=== PATIENT | male | born 1930 | race American Indian/Alaskan Native ===

== ENCOUNTER 2019-01-30 14:17 | Emergency (ER) | payer MEDICARE ==
--- NOTE | 2019-01-30 15:34 | XRay Report ---
CHEST 1 VIEW INDICATION: cough rhonchi. COMPARISON: 06/29/2016 FINDINGS: Support devices: None. Heart: Within normal limits. The aorta is mildly ectatic. Lungs/Pleura: No acute air space or interstitial disease. Additional findings: None. IMPRESSION: No acute findings. Signer Name: Wisam Manzo Jr, MD Signed: 01/30/2019 3:30 PM Workstation Name: [id number]
[2019-01-30 16:09] LABS: Albumin 3.2 g/dL (3.9-5); Calcium 8.9 mg/dL (8.4-10.2)
[2019-01-30 16:19] LABS: Hematocrit 43.8 % (35.5-45.6); Hemoglobin 14.1 gm/dl (11.8-15.2); Mean Corpuscular HGB Conc 32 % (32-34); Mean Corpuscular Volume 91 fl (84-94); Platelet Count 123 K/mm3 (140-440); Red Blood Count 4.83 M/mm3 (3.65-5.03); Red Cell Distribution Width 17.3 % (13.2-15.2)
[2019-01-30 16:28] LABS: INR 0.94 (0.87-1.13)
--- NOTE | 2019-01-30 16:45 | Emergency Department Report ---
ED General Adult HPI - General Chief complaint: Psych Stated complaint: SUICIDLE THOUGHTS Time Seen by Provider: 01/30/19 14:28 Source: patient, EMS (my EMS disclaimed), RN notes reviewed, old records reviewed Mode of arrival: Stretcher Limitations: No Limitations - History of Present Illness Initial comments: The patient is a pleasant 88-year-old gentleman. This patient is not known to this provider previously. The patient typically follows at the [facility]. His past medical history includes obesity, diabetes, hypertension, renal insufficiency, history of GI bleed, diverticulosis He is sent to the ER with EMS because he reportedly made comments about wanting to be suicidal. The patient states that he was not serious about being suicidal. He states he does not have access to guns or firearms. He states he does not want to hurt himself or hurt other people. He states he does not have hallucinations. The patient indicates that he understands how making comments about suicidality could distress people. He denies urinary symptoms. He admits to cough and nasal and chest congestion for 20 years. He denies physical pain at this time. -: This afternoon Consistency: now resolved Improves with: none Worsens with: none - Related Data Previous Rx's Medication Instructions Recorded Last Taken Type Bisacodyl [Dulcolax tab] 10 mg PO QDAY PRN #30 tablet 04/22/13 Unknown Rx Insulin Glargine,Hum.rec.anlog 20 unit SQ QHS #1 pen 04/22/13 Unknown Rx [Lantus Solostar] Lisinopril [Zestril TAB] 20 mg PO QDAY #30 tablet 04/22/13 Unknown Rx Metoprolol [Lopressor TAB] 25 mg PO BID #60 tablet 04/22/13 Unknown Rx Pantoprazole [Protonix TAB] 40 mg PO QDAY #30 tablet 06/30/16 Unknown Rx Albuterol Sulfate [Proair 90 mcg IH Q4HR PRN #2 aer.pow.ba 01/30/19 Unknown Rx Respiclick] Nitrofurantoin [place]/M-Cryst 100 mg PO Q12HR #13 capsule 01/30/19 Unknown Rx [Macrobid CAP] Allergies Allergy/AdvReac Type Severity Reaction Status Date / Time No Known Allergies Allergy Unverified 04/17/13 18:54 ED Review of Systems ROS: Stated complaint: SUICIDLE THOUGHTS Other details as noted in HPI Constitutional: denies: fever Eyes: denies: eye discharge ENT: congestion Respiratory: cough Cardiovascular: denies: syncope Gastrointestinal: denies: abdominal pain Genitourinary: denies: dysuria Musculoskeletal: arthralgia (chronic) Neurological: denies: weakness Psychiatric: denies: auditory hallucinations, visual hallucinations, homicidal thoughts, suicidal thoughts ED Past Medical Hx - Past Medical History Hx Hypertension: Yes Hx CVA: Yes Hx Diabetes: Yes Hx Renal Disease: Yes (renal insufficiency) Hx of Cancer: Yes (throat) Additional medical history: gout - Surgical History Past Surgical History?: No - Social History Smoking Status: Former Smoker Substance Use Type: None - Medications Home Medications: Home Medications Medication Instructions Recorded Confirmed Last Taken Type Bisacodyl [Dulcolax tab] 10 mg PO QDAY PRN #30 tablet 04/22/13 06/27/16 Unknown Rx Insulin Glargine,Hum.rec.anlog 20 unit SQ QHS #1 pen 04/22/13 06/27/16 Unknown Rx [Lantus Solostar] Lisinopril [Zestril TAB] 20 mg PO QDAY #30 tablet 04/22/13 06/27/16 Unknown Rx Metoprolol [Lopressor TAB] 25 mg PO BID #60 tablet 04/22/13 06/27/16 Unknown Rx Pantoprazole [Protonix TAB] 40 mg PO QDAY #30 tablet 06/30/16 Unknown Rx Albuterol Sulfate [Proair 90 mcg IH Q4HR PRN #2 aer.pow.ba 01/30/19 Unknown Rx Respiclick] Nitrofurantoin [place]/M-Cryst 100 mg PO Q12HR #13 capsule 01/30/19 Unknown Rx [Macrobid CAP] ED Physical Exam - General Limitations: No Limitations General appearance: alert, in no apparent distress, obese - Head Head exam: Present: atraumatic, normocephalic - Eye Eye exam: Present: normal appearance, EOMI, other (visual acuity intact to finger counting and color perception at the closest). Absent: nystagmus - ENT ENT exam: Present: normal exam, normal orophraynx, mucous membranes moist, normal external ear exam - Neck Neck exam: Present: normal inspection, full ROM. Absent: tenderness, meningismu s - Respiratory Respiratory exam: Present: rhonchi (very faint rhonchi noted). Absent: respiratory distress - Cardiovascular Cardiovascular Exam: Present: regular rate, normal rhythm, normal heart sounds. Absent: bradycardia, tachycardia, irregular rhythm, systolic murmur, diastolic murmur, rubs, gallop - GI/Abdominal GI/Abdominal exam: Present: soft. Absent: distended, tenderness, guarding, rebound, rigid, pulsatile mass - Rectal Rectal exam: Present: deferred - Extremities Exam Extremities exam: Present: normal inspection, full ROM, other (2+ pulses noted in the bilateral upper and lower extremities. There is no palpable cord. negative Homans sign. Muscular compartments are soft. The pelvis is stable.). Absent: calf tenderness - Back Exam Back exam: Present: normal inspection, full ROM. Absent: tenderness, CVA tenderness (R), CVA tenderness (L), paraspinal tenderness, vertebral tenderness - Neurological Exam Neurological exam: Present: alert (sensation is intact to light touch in 4 extremities.), oriented X3, normal gait, other (there is no facial droop. The tongue is midline. The extraocular movements are intact bilaterally. There is 5 out of 5 strength bilateral upper and lower extremities.). Absent: motor sensory deficit - Psychiatric Psychiatric exam: Absent: homicidal ideation, suicidal ideation - Skin Skin exam: Present: warm, dry, intact, normal color. Absent: rash ED Course Vital Signs 01/30/19 01/30/19 01/30/19 16:08 16:13 17:10 Temperature 98.3 F Pulse Rate 73 65 Respiratory 16 15 13 Rate Blood Pressure 153/70 Blood Pressure 145/76 [Left] O2 Sat by Pulse 94 95 Oximetry - Reevaluation(s) Reevaluation #1: 01/30/19 16:45 Differential diagnosis, including but not limited to: Mood disorder, bronchitis, general medical evaluation Assessment and plan: 88-year-old gentleman who is pleasant, calm and cooperative, not hallucinating, clinically sober, not violent and combative, who does not have suicidality at this time. His physical exam is fairly unremarkable. Screening laboratory studies unremarkable. EKG unchanged from prior. X-ray of the chest reviewed and appreciated. Urinalysis pending. Patient does not appear to have an acute medical emergency condition at this time. Psychiatric consultation is requested, I do not anticipate need for 1013 or inpatient psychiatric old at this time. Reevaluation #2: 01/30/19 18:30 Patient resting comfortably, and in no acute distress. Urinalysis reviewed and appreciated. Vital signs unremarkable. At this point in time, the patient does not appear to have an immediate medical contraindication to psychiatric admission, evaluation and consultation. Patient will be discharged to our [facility] psychiatric floor for further evaluation and management. Reevaluation #3: 01/30/19 18:32 rhonchi resolved ED Medical Decision Making - Lab Data Result diagrams: 01/30/19 15:34 01/30/19 15:34 Vital Signs 01/30/19 01/30/19 16:08 16:13 Pulse Rate 73 Respiratory 16 15 Rate Blood Pressure 153/70 O2 Sat by Pulse 94 Oximetry Lab Results 01/30/19 01/30/19 01/30/19 Range/Units 15:34 15:34 15:34 WBC 5.7 (4.5-11.0) K/mm3 RBC 4.83 (3.65-5.03) M/mm3 Hgb 14.1 (11.8-15.2) gm/dl Hct 43.8 (35.5-45.6) % MCV 91 (84-94) fl MCH 29 (28-32) pg MCHC 32 (32-34) % RDW 17.3 H (13.2-15.2) % Plt Count 123 L (140-440) K/mm3 PT 12.5 (12.2-14.9) Sec. INR 0.94 (0.87-1.13) Sodium 141 (137-145) mmol/L Potassium 4.4 (3.6-5.0) mmol/L Chloride 108.1 H (98-107) mmol/L Carbon Dioxide 25 (22-30) mmol/L Anion Gap 12 mmol/L BUN 17 (9-20) mg/dL Creatinine 1.4 (0.8-1.5) mg/dL Estimated GFR 58 ml/min BUN/Creatinine Ratio 12 % Glucose 129 H (75-100) mg/dL Calcium 8.9 (8.4-10.2) mg/dL Magnesium 2.10 (1.7-2.3) mg/dL Total Bilirubin 0.50 (0.1-1.2) mg/dL AST 16 (5-40) units/L ALT 12 (7-56) units/L Alkaline Phosphatase 134 H (35-129) units/L Total Creatine Kinase 69 (55-170) units/L Total Protein 6.7 (6.3-8.2) g/dL Albumin 3.2 L (3.9-5) g/dL Albumin/Globulin Ratio 0.9 % TSH (0.270-4.200) mlU/mL Salicylates (2.8-20.0) mg/dL Acetaminophen (10.0-30.0) ug/mL Plasma/Serum Alcohol (0-0.07) % 01/30/19 01/30/19 01/30/19 Range/Units 15:34 15:34 15:34 WBC (4.5-11.0) K/mm3 RBC (3.65-5.03) M/mm3 Hgb (11.8-15.2) gm/dl Hct (35.5-45.6) % MCV (84-94) fl MCH (28-32) pg MCHC (32-34) % RDW (13.2-15.2) % Plt Count (140-440) K/mm3 PT (12.2-14.9) Sec. INR (0.87-1.13) Sodium (137-145) mmol/L Potassium (3.6-5.0) mmol/L Chloride (98-107) mmol/L Carbon Dioxide (22-30) mmol/L Anion Gap mmol/L BUN (9-20) mg/dL Creatinine (0.8-1.5) mg/dL Estimated GFR ml/min BUN/Creatinine Ratio % Glucose (75-100) mg/dL Calcium (8.4-10.2) mg/dL Magnesium (1.7-2.3) mg/dL Total Bilirubin (0.1-1.2) mg/dL AST (5-40) units/L ALT (7-56) units/L Alkaline Phosphatase (35-129) units/L Total Creatine Kinase (55-170) units/L Total Protein (6.3-8.2) g/dL Albumin (3.9-5) g/dL Albumin/Globulin Ratio % TSH 2.730 (0.270-4.200) mlU/mL Salicylates < 0.3 L (2.8-20.0) mg/dL Acetaminophen < 5.0 L (10.0-30.0) ug/mL Plasma/Serum Alcohol (0-0.07) % 01/30/19 Range/Units 15:34 WBC (4.5-11.0) K/mm3 RBC (3.65-5.03) M/mm3 Hgb (11.8-15.2) gm/dl Hct (35.5-45.6) % MCV (84-94) fl MCH (28-32) pg MCHC (32-34) % RDW (13.2-15.2) % Plt Count (140-440) K/mm3 PT (12.2-14.9) Sec. INR (0.87-1.13) Sodium (137-145) mmol/L Potassium (3.6-5.0) mmol/L Chloride (98-107) mmol/L Carbon Dioxide (22-30) mmol/L Anion Gap mmol/L BUN (9-20) mg/dL Creatinine (0.8-1.5) mg/dL Estimated GFR ml/min BUN/Creatinine Ratio % Glucose (75-100) mg/dL Calcium (8.4-10.2) mg/dL Magnesium (1.7-2.3) mg/dL Total Bilirubin (0.1-1.2) mg/dL AST (5-40) units/L ALT (7-56) units/L Alkaline Phosphatase (35-129) units/L Total Creatine Kinase (55-170) units/L Total Protein (6.3-8.2) g/dL Albumin (3.9-5) g/dL Albumin/Globulin Ratio % TSH (0.270-4.200) mlU/mL Salicylates (2.8-20.0) mg/dL Acetaminophen (10.0-30.0) ug/mL Plasma/Serum Alcohol < 0.01 (0-0.07) % - EKG Data -: EKG Interpreted by Ct EKG shows normal: sinus rhythm Rate: normal - EKG Data 01/30/19 16:44 The EKG today shows a sinus rhythm, 74 bpm, there is a left axis deviation, there is a prolonged QTC, there is a right bundle branch block, there is a left axis deviation, there is a left anterior fascicular block, there is motion artifact, the EKG is abnormal, it is unchanged from prior EKG from May 2016. The EKG is not consistent with ST elevation myocardial infarction. - Radiology Data Radiology results: report reviewed, image reviewed Print Report Referring Physician: NICOLE TURNER Patient Name: KAREL SCANLON Date of : 1930 Sex: Male Report Date: 2019-01-30 Report Status: Finalized Findings [facility] [address] [place] [address] XRay Report Signed Patient: KAREL SCANLON MR#: [id number] : 1930 Acct:[id number] Age/Sex: 88 / M ADM Date: 01/30/19 Loc: ED Attending Dr: Ordering Physician: NICOLE TURNER MD Date of Service: 01/30/19 Procedure(s): XR chest 1V ap Accession Number(s): [id number] cc: NICOLE TURNER MD Fluoro Time In Minutes: CHEST 1 VIEW INDICATION: cough rhonchi. COMPARISON: 06/29/2016 FINDINGS: Support devices: None. Heart: Within normal limits. The aorta is mildly ectatic. Lungs/Pleura: No acute air space or interstitial disease. Additional findings: None. IMPRESSION: No acute findings. Signer Name: Wisam Manzo Jr, MD Signed: 01/30/2019 3:30 PM Workstation Name: [id number] Transcribed By: TTR Dictated By: WISAM MANZO JR, MD Electronically Authenticated By: WISAM MANZO JR, MD Signed Date/Time: 01/30/19 1530 DD/ 1529 TD/TT: Critical care attestation.: If time is entered above; I have spent that time in minutes in the direct care of this critically ill patient, excluding procedure time. ED Disposition Clinical Impression: Medical clearance for psychiatric admission Disposition: [id number]/TX-65 PSY HOSP/PSY UNIT Is pt being admited?: No Does the pt Need Aspirin: No Condition: Stable Additional Instructions: Cultures of the urine was sent today, and results be available in the next 3-5 days. Please have a primary care doctor contact the medical records department to obtain culture results. Take the antibiotics as directed. Follow-up with her primary care doctor within the next 7 days. Return to the emergency room right away with new, worsen, different symptoms, or symptoms not present on the initial emergency room evaluation. Referrals: MANOLO WALDEN MD [Primary Care Provider] - 3-5 Days [facility] [Provider Group] - 3-5 Days
[2019-01-30 18:08] LABS: Amphetamine Screen,Urine PRESUMPTIVE NEGATIVE; Benzodiazepines Screen,Urine PRESUMPTIVE NEGATIVE; Cannabinoid Screen,Urine PRESUMPTIVE NEGATIVE; Cocaine Screen,Urine PRESUMPTIVE NEGATIVE; Methadone Screen,Urine PRESUMPTIVE NEGATIVE; Opiate Screen,Urine PRESUMPTIVE NEGATIVE
[2019-01-30 18:09] LABS: Bacteria,Urine 4+ /HPF (Negative); Bilirubin,Urine NEG (Negative); Blood,Urine NEG (Negative); Color,Urine Yellow (Yellow); Mucus,Urine FEW /HPF; Protein,Urine <15 mg/dL mg/dL (Negative)
[2019-01-30] MEDS ORDERED: NITROFURANTOIN MONOHYD/M-CRYST 100 MG CAP PO ONE (18:27)
[2019-01-30 19:08] VITALS: BP 153/81
== END 2019-01-30 19:08 ==
LOC: ED 14:17 → EEVIPCON 14:17 → ED 19:08
DX: R45.851 Suicidal ideations (principal); R05 Cough; R09.81 Nasal congestion; I10 Essential (primary) hypertension; E11.9 Type 2 diabetes mellitus without complications; M10.9 Gout, unspecified; Z87.891 Personal history of nicotine dependence; Z79.899 Other long term (current) drug therapy
CPT/HCPCS: 36415; 71045; 80053; 80307; 80320; 81001; 82550; 83735; 84443; 85027; 85610; 87076; 87086; 87186; 93005; 93010; G0480

== ENCOUNTER 2019-01-30 18:04 | Inpatient (IN) | payer MEDICARE ==
[2019-01-31 07:45] LABS: Chol/HDL Ratio 3.31 %
--- NOTE | 2019-01-31 10:18 | Progress Note ---
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 Subjective Comment: Patient seen this morning. Per Nursing Staff, patient had an uneventful night, patient slept 8+ hours. Assisted up to use the urinal. Denies discomfort. Monitoring and safety is ongoing. In my interview this morning with the patient, Mr. Robles stated he was in an alright mood, did not sleep well, and was cold. The patient does not want to harm himself or others, presently has no thought of suicide, and has no side effects from his medications. The patient asked for a sleeping pill to help him sleep. Objective - Criteria for Continued Treatment Criteria for Continued Treatment: Improving Level of Functioning, Stablizing Level of Functioning, Decreasing Frequency of Hospitalization - Mental Status Mental Status: Alert - Objective Observation Participation Level: Moderate Assessment and Plan - Patient Problems (1) Major neurocognitive disorder due to Alzheimer's disease, probable, with behavioral disturbance Current Visit: Yes Status: Acute Plan to address problem: Patient will be admitted for inpatient psychiatric evaluation, medication adjustment and close monitoring The patient's behavior, mood, sleep and appetite will be closely monitored. Patient will be enrolled in individual and group therapeutic sessions and encouraged to attend. Patient will be provided with a safe and structured environment. Patient's physical health needs will be addressed by the Hospitalist. Hospitalist Consulted Labs including CBC, CMP, Lipid profile and Hemoglobin A1C ordered Social Assessment will be completed and the Metal Reed Tuner will work with patient and family to ensure a suitable and safe disposition Medication adjustment will be made as clinically indicated Usual Wellness Quaker/Preservation: - Start Trazodone 50 mg po QHS & 50 mg po QHS PRN between 10 PM & 2 AM for insomnia - Start Melatonin 5 mg po QHS to promote circadian rhythm - Start [place]-3 for brain health, reduce impulsivity, and as adjunctive treatment for mood disorder, continue upon discharge given overall benefits. - Start B1 prophylaxis with 200 mg po for 5 days The patient agreed on the treatment plan, understood the risk, benefit, alternative treatment, potential consequence of no treatment, and gave informed consent. Medications and Allergies Allergies Allergy/AdvReac Type Severity Reaction Status Date / Time No Known Allergies Allergy Unverified 04/17/13 18:54 Home Medications Medication Instructions Recorded Confirmed Last Taken Type Bisacodyl [Dulcolax tab] 10 mg PO QDAY PRN #30 tablet 04/22/13 01/31/19 Unknown Rx Insulin Glargine,Hum.rec.anlog 20 unit SQ QHS #1 pen 04/22/13 01/31/19 Unknown Rx [Lantus Solostar] Lisinopril [Zestril TAB] 20 mg PO QDAY #30 tablet 04/22/13 01/31/19 Unknown Rx Metoprolol [Lopressor TAB] 25 mg PO BID #60 tablet 04/22/13 01/31/19 Unknown Rx Pantoprazole [Protonix TAB] 40 mg PO QDAY #30 tablet 06/30/16 01/31/19 Unknown Rx Albuterol Sulfate [Proair 90 mcg IH Q4HR PRN #2 aer.pow.ba 01/30/19 01/31/19 Unknown Rx Respiclick] Nitrofurantoin [place]/M-Cryst 100 mg PO Q12HR #13 capsule 01/30/19 01/31/19 Unknown Rx [Macrobid CAP] Results - Results Labs/Vitals: Laboratory Last Values POC Glucose 93 (70-105) 01/31/19 06:33 Hemoglobin A1c 5.8 % (4-6) 01/31/19 07:20 Triglycerides 98 mg/dL (2-149) 01/31/19 07:20 Cholesterol 156 mg/dL (50-199) 01/31/19 07:20 LDL Cholesterol Direct 106 mg/dL (50-130) 01/31/19 07:20 HDL Cholesterol 47 mg/dL (40-59) 01/31/19 07:20 Cholesterol/HDL Ratio 3.31 % 01/31/19 07:20 Last Vital Signs Temp 97.3 F L 01/30/19 22:00 Pulse 76 01/30/19 22:00 Resp 16 01/30/19 22:00 BP 131/64 01/30/19 22:00 Pulse Ox 97 01/30/19 22:00 Mental Status Exam - Vital signs Last Vital Signs Temp 97.7 F 02/01/19 09:46 Pulse 68 02/01/19 22:00 Resp 18 02/01/19 22:00 BP 124/66 02/01/19 22:00 Pulse Ox 95 02/01/19 22:00 - Exam Orientation: place, person Affect: normal Mood: calm Thought content: other (No SI/HI) Thought Process: Intact Perceptions: none Speech: normal rate and pattern Level of consciousness: alert Memory: Intact Sleep Symptoms: Difficulty Falling Asleep Interaction: cooperative
--- NOTE | 2019-01-31 13:27 | History and Physical Report ---
GP History & Physical - History of Present Illness Date of admission: 01/30/19 Date of Examination: 01/31/19 Reason for Admission: Danger to self, Severe anxiety/depression, Unable to care for self Chief Complaint: I said something stupid History of Present Illness: Karel Scanlon is an 88 year old retired male. Mr. Scanlon is a of 14 years. The patient stated that he just was tired of where he was, and what was going on, so he said he was going to kill himself to be moved from that place. MMSE PAST PSYCHIATRIC HISTORY: Diagnoses: None Suicide attempts or Self-harm behavior: Patient said this was his first time. Prior psychiatric hospitalizations: None Substance Abuse history: Alcohol: Patient stated that he hadn't had a drink in 12 years. Tobacco: Patient does not smoke. Previous psychiatric medications tried: n/a Outpatient treatment: none PAST MEDICAL /SURGICAL HISTORY: HTN, Diabetes, gout, UTI, Throat cancer, stroke and back surgery. Patient ambulates on wheelchair Allergies: NKDA Family Psychiatric History None reported or documented SOCIAL HISTORY Retired Lives with family Access to guns/weapons: No Education: Highest Grade Level 4th History of Abuse: None REVIEW OF SYSTEMS Constitutional: Negative for weight loss ENT: Negative for stridor Respiratory: Negative for cough or hemoptysis All other systems reviewed and are negative Legal Status: Voluntary Patient Problems: Current Active Problems Major neurocognitive disorder due to Alzheimer's disease, probable, with behavioral disturbance (Acute) Reaction to Hospitalization: Accepting Medications and Allergies Allergies Allergy/AdvReac Type Severity Reaction Status Date / Time No Known Allergies Allergy Unverified 04/17/13 18:54 Home Medications Medication Instructions Recorded Confirmed Last Taken Type Bisacodyl [Dulcolax tab] 10 mg PO QDAY PRN #30 tablet 04/22/13 01/31/19 Unknown Rx Insulin Glargine,Hum.rec.anlog 20 unit SQ QHS #1 pen 04/22/13 01/31/19 Unknown Rx [Lantus Solostar] Lisinopril [Zestril TAB] 20 mg PO QDAY #30 tablet 04/22/13 01/31/19 Unknown Rx Metoprolol [Lopressor TAB] 25 mg PO BID #60 tablet 04/22/13 01/31/19 Unknown Rx Pantoprazole [Protonix TAB] 40 mg PO QDAY #30 tablet 06/30/16 01/31/19 Unknown Rx Albuterol Sulfate [Proair 90 mcg IH Q4HR PRN #2 aer.pow.ba 01/30/19 01/31/19 Unknown Rx Respiclick] Nitrofurantoin [place]/M-Cryst 100 mg PO Q12HR #13 capsule 01/30/19 01/31/19 Unknown Rx [Macrobid CAP] Substance History - Substance History Drug Use: none Results - Results Labs/Vitals: Laboratory Last Values POC Glucose 104 (70-105) 01/31/19 11:52 Hemoglobin A1c 5.8 % (4-6) 01/31/19 07:20 Triglycerides 98 mg/dL (2-149) 01/31/19 07:20 Cholesterol 156 mg/dL (50-199) 01/31/19 07:20 LDL Cholesterol Direct 106 mg/dL (50-130) 01/31/19 07:20 HDL Cholesterol 47 mg/dL (40-59) 01/31/19 07:20 Cholesterol/HDL Ratio 3.31 % 01/31/19 07:20 Last Vital Signs Temp 97.3 F L 01/30/19 22:00 Pulse 76 01/30/19 22:00 Resp 16 01/30/19 22:00 BP 131/64 01/30/19 22:00 Pulse Ox 97 01/30/19 22:00 Physical Examination - Constitutional Vitals: Vital Signs Temp Pulse Resp BP Pulse Ox 97.3 F L 76 16 131/64 97 01/30/19 22:00 01/30/19 22:00 01/30/19 22:00 01/30/19 22:00 01/30/19 22:00 Temperature -Last 24 Hours Temperature 97.3 F General appearance: Present: no acute distress, well-nourished - EENT Eyes: Present: PERRL, EOM intact ENT: hearing intact, clear oral mucosa - Neck Neck: Present: supple, normal ROM - Respiratory Respiratory effort: normal Mental Status Exam - Vital signs Last Vital Signs Temp 97.3 F L 01/30/19 22:00 Pulse 76 01/30/19 22:00 Resp 16 01/30/19 22:00 BP 131/64 01/30/19 22:00 Pulse Ox 97 01/30/19 22:00 - Exam Orientation: time, place, person Affect: normal Mood: appropriate Thought Process: Intact Perceptions: none Speech: normal rate and pattern Concentration: focused Motor activity: normal Level of consciousness: alert Assessment and Plan - Psychiatric problem (1) Major neurocognitive disorder due to Alzheimer's disease, probable, with behavioral disturbance Current Visit: Yes Status: Acute plan to address problem: Patient will be admitted for inpatient psychiatric evaluation, medication adjustment and close monitoring The patient's behavior, mood, sleep and appetite will be closely monitored. Patient will be enrolled in individual and group therapeutic sessions and encouraged to attend. Patient will be provided with a safe and structured environment. Patient's physical health needs will be addressed by the Hospitalist. Hospitalist Consulted Labs including CBC, CMP, Lipid profile and Hemoglobin A1C ordered Social Assessment will be completed and the Automat Watcher will work with patient and family to ensure a suitable and safe disposition Medication adjustment will be made as clinically indicated Usual Wellness Jain/Preservation: - Start Trazodone 50 mg po QHS & 50 mg po QHS PRN between 10 PM & 2 AM for insomnia - Start Melatonin 5 mg po QHS to promote circadian rhythm - Start [place]-3 for brain health, reduce impulsivity, and as adjunctive treatment for mood disorder, continue upon discharge given overall benefits. - Start B1 prophylaxis with 200 mg po for 5 days The patient agreed on the treatment plan, understood the risk, benefit, alternative treatment, potential consequence of no treatment, and gave informed consent. Physician Certification - Certification Statement Physician Certification Statement: This is an acknowledgement statement that KAREL SCANLON is a 88 year old M who requires inpatient psychiatric admission for treatment which could reasonably be expected to improve the patient's condition for Estimated period of time patient will need to remain in the hospital: [ ] Plan for post-hospital care: [ ]
--- NOTE | 2019-01-31 17:47 | Consultation ---
History of Present Illness - Reason for Consult Consult date: 01/31/19 med mgmnt - History of Present Illness Davon Robles is an 88 year old retired male. Mr. Robles is a of 14 years. The patient stated that he just was tired of where he was, and what was going on, so he said he was going to kill himself to be moved from that place per Psych attending. Hospitalist service was consulted for medical management of DM and HTN. No CP, SOB, h/a or visual disturbances. Pt. reports left knee pain attributed to gout. Past History Past Medical History: diabetes, hypertension, other (gout) Medications and Allergies Allergies Allergy/AdvReac Type Severity Reaction Status Date / Time No Known Allergies Allergy Unverified 04/17/13 18:54 Home Medications Medication Instructions Recorded Confirmed Last Taken Type Bisacodyl [Dulcolax tab] 10 mg PO QDAY PRN #30 tablet 04/22/13 01/31/19 Unknown Rx Insulin Glargine,Hum.rec.anlog 20 unit SQ QHS #1 pen 04/22/13 01/31/19 Unknown Rx [Lantus Solostar] Lisinopril [Zestril TAB] 20 mg PO QDAY #30 tablet 04/22/13 01/31/19 Unknown Rx Metoprolol [Lopressor TAB] 25 mg PO BID #60 tablet 04/22/13 01/31/19 Unknown Rx Pantoprazole [Protonix TAB] 40 mg PO QDAY #30 tablet 06/30/16 01/31/19 Unknown Rx Albuterol Sulfate [Proair 90 mcg IH Q4HR PRN #2 aer.pow.ba 01/30/19 01/31/19 Unknown Rx Respiclick] Nitrofurantoin [place]/M-Cryst 100 mg PO Q12HR #13 capsule 01/30/19 01/31/19 Unknown Rx [Macrobid CAP] Review of Systems All systems: negative Exam - Constitutional Vitals: Temp Pulse Resp BP Pulse Ox 97.3 F L 76 16 131/64 97 01/30/19 22:00 01/30/19 22:00 01/30/19 22:00 01/30/19 22:00 01/30/19 22:00 General appearance: Present: no acute distress, well-nourished - EENT Eyes: Present: PERRL ENT: hearing intact, clear oral mucosa - Neck Neck: Present: supple, normal ROM - Respiratory Respiratory effort: normal Respiratory: bilateral: CTA - Cardiovascular Heart Sounds: Present: S1 & S2. Absent: rub, click - Extremities Extremities: pulses symmetrical, No edema Peripheral Pulses: within normal limits - Abdominal General gastrointestinal: Present: soft, non-tender, non-distended, normal bowel sounds Male genitourinary: Present: normal - Integumentary Integumentary: Present: clear, warm, dry - Musculoskeletal Musculoskeletal: gait normal, strength equal bilaterally - Psychiatric Psychiatric: appropriate mood/affect, intact judgment & insight - Neurologic Neurologic: CNII-XII intact, moves all extremities Results - Labs Labs: Abnormal lab results 01/30/19 01/31/19 Range/Units 20:32 16:40 POC Glucose 143 H 159 H (70-105) Assessment and Plan Depression ? SI per Psych team DM. Accuchecks and SSRI HTN. Cont BP meds Gout. Consider colchicine. Check Uric acid levels
[2019-01-31] MEDS ORDERED: DEXTROSE 50% IN WATER (25GM) 50 ML SYRINGE IV PRN (17:48)
[2019-01-31 18:56] LABS: Hemoglobin 14.5 gm/dl (11.8-15.2); Mean Corpuscular HGB Conc 33 % (32-34); Mean Corpuscular Volume 90 fl (84-94); Platelet Count 130 K/mm3 (140-440); Red Cell Distribution Width 17.3 % (13.2-15.2)
[2019-01-31 19:10] LABS: Calcium 9.3 mg/dL (8.4-10.2); Uric Acid 7.2 mg/dL (3.5-7.6)
[2019-01-31 20:01] LABS: Total Cells Counted 100
[2019-01-31 20:02] LABS: Macrocytosis Few; Platelet Estimate Consistent w Auto
[2019-01-31] MEDS: INSULIN REGULAR, HUMAN 100 UNITS/1 ML SUB-Q SCH (21:48)
[2019-01-31] MEDS ORDERED: traZODone 50 MG TAB PO ONE (22:04)
[2019-01-31] MEDS ORDERED: IBUPROFEN 800 MG TAB PO ONE (22:10)
[2019-02-01] MEDS: INSULIN REGULAR, HUMAN 100 UNITS/1 ML SUB-Q SCH ×4 (08:29→21:20)
[2019-02-01] MEDS ORDERED: NON-FORMULARY EACH (Albuterol Sulfate [Proair Respiclick] 90 MCG) IH PRN (09:41)
[2019-02-01] MEDS ORDERED: ALBUTEROL 2.5 MG/3 ML NEBU IH PRN (10:58)
[2019-02-01] MEDS: LISINOPRIL 20 MG TAB PO SCH (11:11)
[2019-02-01] MEDS: PANTOPRAZOLE 40 MG TAB PO SCH (11:11)
[2019-02-01] MEDS: METOPROLOL TARTRATE 25 MG TAB PO SCH ×2 (11:12→21:21)
[2019-02-01] MEDS: NITROFURANTOIN MONOHYD/M-CRYST 100 MG CAP PO SCH ×2 (12:01→21:22)
[2019-02-01] MEDS: INSULIN GLARGINE 100 UNITS/ML SUB-Q SCH ×2 (20:17→21:24)
[2019-02-01] MEDS ORDERED: INSULIN GLARGINE HUM REC ANLOG 20 UNIT SQ SCH (22:00)
[2019-02-02] MEDS: INSULIN REGULAR, HUMAN 100 UNITS/1 ML SUB-Q SCH ×4 (07:30→21:32)
[2019-02-02] MEDS: METOPROLOL TARTRATE 25 MG TAB PO SCH ×2 (12:00→21:33)
[2019-02-02] MEDS: NITROFURANTOIN MONOHYD/M-CRYST 100 MG CAP PO SCH ×2 (12:00→21:33)
[2019-02-02] MEDS: PANTOPRAZOLE 40 MG TAB PO SCH (12:00)
[2019-02-02] MEDS: LISINOPRIL 20 MG TAB PO SCH (12:00)
[2019-02-02] MEDS: OMEGA-3 FATTY ACIDS/FISH OIL 1 GRAM CAP PO SCH ×2 (13:19→21:33)
[2019-02-02] MEDS: MELATONIN 5 MG TAB PO SCH (16:59)
[2019-02-02] MEDS: traZODone 50 MG TAB PO PRN (21:32)
[2019-02-02] MEDS: INSULIN GLARGINE 100 UNITS/ML SUB-Q SCH (21:48)
[2019-02-03] MEDS: INSULIN REGULAR, HUMAN 100 UNITS/1 ML SUB-Q SCH ×4 (07:50→22:08)
--- NOTE | 2019-02-03 09:39 | Progress Note ---
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 Subjective Comment: Patient seen this morning. Per Nursing Staff, patient is alert and oriented x3, calm and cooperative, interacts with peers, able to make needs known, good appetite, ambulate on wheel chair, needs assistance with ADLS, patient is medication compliant, denies SI/HI, denies A/V/H, no signs of distress noted, will continue to monitor for safety, bed alarm applied, resting comfortably at this time. In my interview this morning with the patient, Mr. Robles stated he was in an alright mood, did not sleep well, and was cold. The patient does not want to harm himself or others, presently has no thought of suicide, and has no side effects from his medications. The patient asked for a sleeping pill to help him sleep. Objective - Criteria for Continued Treatment Criteria for Continued Treatment: Improving Level of Functioning, Stablizing Level of Functioning, Improving Emotional/Socia Assessment and Plan - Patient Problems (1) Major neurocognitive disorder due to Alzheimer's disease, probable, with behavioral disturbance Current Visit: Yes Status: Acute Plan to address problem: Continue inpatient psychiatric evaluation, medication adjustment and close monitoring The patient's behavior, mood, sleep and appetite will be closely monitored. Patient will be enrolled in individual and group therapeutic sessions and encouraged to attend. Patient will be provided with a safe and structured environment. Patient's physical health needs will be addressed by the Hospitalist. Hospitalist Consulted Social Assessment will be completed and the Nurse Researcher will work with patient and family to ensure a suitable and safe disposition Medication adjustment will be made as clinically indicated The patient agreed on the treatment plan, understood the risk, benefit, alternative treatment, potential consequence of no treatment, and gave informed consent. Medications and Allergies Allergies Allergy/AdvReac Type Severity Reaction Status Date / Time No Known Allergies Allergy Unverified 04/17/13 18:54 Home Medications Medication Instructions Recorded Confirmed Last Taken Type Bisacodyl [Dulcolax tab] 10 mg PO QDAY PRN #30 tablet 04/22/13 01/31/19 Unknown Rx Insulin Glargine,Hum.rec.anlog 20 unit SQ QHS #1 pen 04/22/13 01/31/19 Unknown Rx [Lantus Solostar] Lisinopril [Zestril TAB] 20 mg PO QDAY #30 tablet 04/22/13 01/31/19 Unknown Rx Metoprolol [Lopressor TAB] 25 mg PO BID #60 tablet 04/22/13 01/31/19 Unknown Rx Pantoprazole [Protonix TAB] 40 mg PO QDAY #30 tablet 06/30/16 01/31/19 Unknown Rx Albuterol Sulfate [Proair 90 mcg IH Q4HR PRN #2 aer.pow.ba 01/30/19 01/31/19 Unknown Rx Respiclick] Nitrofurantoin [place]/M-Cryst 100 mg PO Q12HR #13 capsule 01/30/19 01/31/19 Unknown Rx [Macrobid CAP] Active Meds: Active Medications Albuterol (Proventil) 2.5 mg IH Q4HRT PRN PRN Reason: Shortness Of Breath,WHEEZING Bisacodyl (Dulcolax) 10 mg PO QDAY PRN PRN Reason: Constipation Dextrose (D50w (25gm) Syringe) 50 ml IV Q30MIN PRN; Protocol PRN Reason: Hypoglycemia Fish Oil (Fish Oil) 2,000 mg PO BID [facility] Last Admin: 02/02/19 21:33 Dose: 2,000 mg Documented by: Insulin Glargine (Lantus) 20 units SUB-Q QHS [facility] Last Admin: 02/02/19 21:48 Dose: 20 units Documented by: Insulin Human Regular (Humulin R) 0 units SUB-Q ACHS [facility]; Protocol Last Admin: 02/03/19 07:50 Dose: Not Given Documented by: Lisinopril (Zestril) 20 mg PO QDAY [facility] Last Admin: 02/02/19 12:00 Dose: 20 mg Documented by: Melatonin (Melatonin) 5 mg PO QPM [facility] Last Admin: 02/02/19 16:59 Dose: 5 mg Documented by: Metoprolol Tartrate (Metoprolol) 25 mg PO BID [facility] Last Admin: 02/02/19 21:33 Dose: 25 mg Documented by: Nitrofurantoin Macrocrystals (Macrobid) 100 mg PO Q12HR [facility] Stop: 02/07/19 10:01 Last Admin: 02/02/19 21:33 Dose: 100 mg Documented by: Pantoprazole Sodium (Protonix) 40 mg PO QDAY [facility] Last Admin: 02/02/19 12:00 Dose: 40 mg Documented by: Thiamine HCl (Vitamin B-1) 100 mg PO QDAY [facility] Trazodone HCl (Desyrel) 50 mg PO QHS PRN PRN Reason: Insomnia Last Admin: 02/02/19 21:32 Dose: 50 mg Documented by: Results - Results Labs/Vitals: Laboratory Last Values WBC 7.2 K/mm3 (4.5-11.0) 01/31/19 18:33 RBC 4.90 M/mm3 (3.65-5.03) 01/31/19 18:33 Hgb 14.5 gm/dl (11.8-15.2) 01/31/19 18:33 Hct 44.0 % (35.5-45.6) 01/31/19 18:33 MCV 90 fl (84-94) 01/31/19 18:33 MCH 30 pg (28-32) 01/31/19 18:33 MCHC 33 % (32-34) 01/31/19 18:33 RDW 17.3 % (13.2-15.2) H 01/31/19 18:33 Plt Count 130 K/mm3 (140-440) L 01/31/19 18:33 Add Manual Diff Complete 01/31/19 18:33 Total Counted 100 01/31/19 18:33 Seg Neuts % (Manual) 60.0 % (40.0-70.0) 01/31/19 18:33 Band Neutrophils % 0 % 01/31/19 18:33 Lymphocytes % (Manual) 28.0 % (13.4-35.0) 01/31/19 18:33 Reactive Lymphs % (Man) 0 % 01/31/19 18:33 Monocytes % (Manual) 8.0 % (0.0-7.3) H 01/31/19 18:33 Eosinophils % (Manual) 2.0 % (0.0-4.3) 01/31/19 18:33 Basophils % (Manual) 2.0 % (0.0-1.8) H 01/31/19 18:33 Metamyelocytes % 0 % 01/31/19 18:33 Myelocytes % 0 % 01/31/19 18:33 Promyelocytes % 0 % 01/31/19 18:33 Blast Cells % 0 % 01/31/19 18:33 Nucleated RBC % Not Reportable 01/31/19 18:33 Seg Neutrophils # Man 4.3 K/mm3 (1.8-7.7) 01/31/19 18:33 Band Neutrophils # 0.0 K/mm3 01/31/19 18:33 Lymphocytes # (Manual) 2.0 K/mm3 (1.2-5.4) 01/31/19 18:33 Abs React Lymphs (Man) 0.0 K/mm3 01/31/19 18:33 Monocytes # (Manual) 0.6 K/mm3 (0.0-0.8) 01/31/19 18:33 Eosinophils # (Manual) 0.1 K/mm3 (0.0-0.4) 01/31/19 18:33 Basophils # (Manual) 0.1 K/mm3 (0.0-0.1) 01/31/19 18:33 Metamyelocytes # 0.0 K/mm3 01/31/19 18:33 Myelocytes # 0.0 K/mm3 01/31/19 18:33 Promyelocytes # 0.0 K/mm3 01/31/19 18:33 Blast Cells # 0.0 K/mm3 01/31/19 18:33 WBC Morphology Not Reportable 01/31/19 18:33 Hypersegmented Neuts Not Reportable 01/31/19 18:33 Hyposegmented Neuts Not Reportable 01/31/19 18:33 Hypogranular Neuts Not Reportable 01/31/19 18:33 Smudge Cells Not Reportable 01/31/19 18:33 Toxic Granulation Not Reportable 01/31/19 18:33 Toxic Vacuolation Not Reportable 01/31/19 18:33 Dohle Bodies Not Reportable 01/31/19 18:33 Pelger-Huet Anomaly Not Reportable 01/31/19 18:33 Issa Rods Not Reportable 01/31/19 18:33 Platelet Estimate Consistent w auto 01/31/19 18:33 Clumped Platelets Not Reportable 01/31/19 18:33 Plt Clumps, EDTA Not Reportable 01/31/19 18:33 Large Platelets Not Reportable 01/31/19 18:33 Giant Platelets Not Reportable 01/31/19 18:33 Platelet Satelliting Not Reportable 01/31/19 18:33 Plt Morphology Comment Not Reportable 01/31/19 18:33 RBC Morphology Not Reportable 01/31/19 18:33 Dimorphic RBCs Not Reportable 01/31/19 18:33 Polychromasia Rare 01/31/19 18:33 Hypochromasia Not Reportable 01/31/19 18:33 Poikilocytosis Not Reportable 01/31/19 18:33 Anisocytosis Not Reportable 01/31/19 18:33 Microcytosis Not Reportable 01/31/19 18:33 Macrocytosis Few 01/31/19 18:33 Spherocytes Not Reportable 01/31/19 18:33 Pappenheimer Bodies Not Reportable 01/31/19 18:33 Sickle Cells Not Reportable 01/31/19 18:33 Target Cells Not Reportable 01/31/19 18:33 Tear Drop Cells Not Reportable 01/31/19 18:33 Ovalocytes Not Reportable 01/31/19 18:33 Helmet Cells Not Reportable 01/31/19 18:33 [place] Bodies Not Reportable 01/31/19 18:33 [place] Rings Not Reportable 01/31/19 18:33 [place] Cells Not Reportable 01/31/19 18:33 Bite Cells Not Reportable 01/31/19 18:33 Crenated Cell Not Reportable 01/31/19 18:33 Elliptocytes Not Reportable 01/31/19 18:33 Acanthocytes (Spur) Not Reportable 01/31/19 18:33 Rouleaux Not Reportable 01/31/19 18:33 Hemoglobin C Crystals Not Reportable 01/31/19 18:33 Schistocytes Not Reportable 01/31/19 18:33 Malaria parasites Not Reportable 01/31/19 18:33 Bravo Bodies Not Reportable 01/31/19 18:33 Hem Pathologist Commnt No 01/31/19 18:33 Sodium 139 mmol/L (137-145) 01/31/19 18:33 Potassium 4.2 mmol/L (3.6-5.0) 01/31/19 18:33 Chloride 101.0 mmol/L (98-107) 01/31/19 18:33 Carbon Dioxide 25 mmol/L (22-30) 01/31/19 18:33 Anion Gap 17 mmol/L 01/31/19 18:33 BUN 17 mg/dL (9-20) 01/31/19 18:33 Creatinine 1.5 mg/dL (0.8-1.5) 01/31/19 18:33 Estimated GFR 54 ml/min 01/31/19 18:33 BUN/Creatinine Ratio 11 % 01/31/19 18:33 Glucose 161 mg/dL (75-100) H 01/31/19 18:33 POC Glucose 97 (70-105) 02/03/19 06:28 Hemoglobin A1c 5.8 % (4-6) 01/31/19 07:20 Uric Acid 7.2 mg/dL (3.5-7.6) 01/31/19 18:33 Calcium 9.3 mg/dL (8.4-10.2) 01/31/19 18:33 Triglycerides 98 mg/dL (2-149) 01/31/19 07:20 Cholesterol 156 mg/dL (50-199) 01/31/19 07:20 LDL Cholesterol Direct 106 mg/dL (50-130) 01/31/19 07:20 HDL Cholesterol 47 mg/dL (40-59) 01/31/19 07:20 Cholesterol/HDL Ratio 3.31 % 01/31/19 07:20 Last Vital Signs Temp 97.7 F 02/03/19 07:32 Pulse 73 02/03/19 07:32 Resp 20 02/03/19 07:32 BP 154/51 02/03/19 07:32 Pulse Ox 94 02/03/19 07:32
--- NOTE | 2019-02-03 10:42 | Progress Note ---
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 Subjective Comment: Patient seen this morning. Per Nursing Staff, patient is alert and oriented x3, calm and cooperative, interacts with peers, able to make needs known, good appetite, ambulate on wheel chair, needs assistance with ADLS, patient is medication compliant, denies SI/HI, denies A/V/H, no signs of distress noted, will continue to monitor for safety, bed alarm applied, resting comfortably at this time. In my interview this morning with the patient, Mr. Robles stated he was in an alright mood, did not sleep well, and was cold. The patient does not want to harm himself or others, presently has no thought of suicide, and has no side effects from his medications. The patient asked for a sleeping pill to help him sleep. Objective - Criteria for Continued Treatment Criteria for Continued Treatment: Improving Level of Functioning, Stablizing Level of Functioning. - Patient Problems (1) Major neurocognitive disorder due to Alzheimer's disease, probable, with behavioral disturbance Current Visit: Yes Status: Acute Plan to address problem: Continue inpatient psychiatric evaluation, medication adjustment and close monitoring The patient's behavior, mood, sleep and appetite will be closely monitored. Patient will be enrolled in individual and group therapeutic sessions and encouraged to attend. Patient will be provided with a safe and structured environment. Patient's physical health needs will be addressed by the Hospitalist. Hospitalist Consulted Social Assessment will be completed and the Chronometer Assembler And Adjuster will work with patient and family to ensure a suitable and safe disposition Medication adjustment will be made as clinically indicated The patient agreed on the treatment plan, understood the risk, benefit, alternative treatment, potential consequence of no treatment, and gave informed consent. Assessment and Plan - Patient Problems (1) Major neurocognitive disorder due to Alzheimer's disease, probable, with behavioral disturbance Current Visit: Yes Status: Acute Medications and Allergies Allergies Allergy/AdvReac Type Severity Reaction Status Date / Time No Known Allergies Allergy Unverified 04/17/13 18:54 Home Medications Medication Instructions Recorded Confirmed Last Taken Type Bisacodyl [Dulcolax tab] 10 mg PO QDAY PRN #30 tablet 04/22/13 01/31/19 Unknown Rx Insulin Glargine,Hum.rec.anlog 20 unit SQ QHS #1 pen 04/22/13 01/31/19 Unknown Rx [Lantus Solostar] Lisinopril [Zestril TAB] 20 mg PO QDAY #30 tablet 04/22/13 01/31/19 Unknown Rx Metoprolol [Lopressor TAB] 25 mg PO BID #60 tablet 04/22/13 01/31/19 Unknown Rx Pantoprazole [Protonix TAB] 40 mg PO QDAY #30 tablet 06/30/16 01/31/19 Unknown Rx Albuterol Sulfate [Proair 90 mcg IH Q4HR PRN #2 aer.pow.ba 01/30/19 01/31/19 Unknown Rx Respiclick] Nitrofurantoin [place]/M-Cryst 100 mg PO Q12HR #13 capsule 01/30/19 01/31/19 Unknown Rx [Macrobid CAP] Active Meds: Active Medications Albuterol (Proventil) 2.5 mg IH Q4HRT PRN PRN Reason: Shortness Of Breath,WHEEZING Bisacodyl (Dulcolax) 10 mg PO QDAY PRN PRN Reason: Constipation Dextrose (D50w (25gm) Syringe) 50 ml IV Q30MIN PRN; Protocol PRN Reason: Hypoglycemia Fish Oil (Fish Oil) 2,000 mg PO BID [facility] Last Admin: 02/02/19 21:33 Dose: 2,000 mg Documented by: Insulin Glargine (Lantus) 20 units SUB-Q QHS [facility] Last Admin: 02/02/19 21:48 Dose: 20 units Documented by: Insulin Human Regular (Humulin R) 0 units SUB-Q ACHS [facility]; Protocol Last Admin: 02/03/19 07:50 Dose: Not Given Documented by: Lisinopril (Zestril) 20 mg PO QDAY [facility] Last Admin: 02/02/19 12:00 Dose: 20 mg Documented by: Melatonin (Melatonin) 5 mg PO QPM [facility] Last Admin: 02/02/19 16:59 Dose: 5 mg Documented by: Metoprolol Tartrate (Metoprolol) 25 mg PO BID [facility] Last Admin: 02/02/19 21:33 Dose: 25 mg Documented by: Nitrofurantoin Macrocrystals (Macrobid) 100 mg PO Q12HR [facility] Stop: 02/07/19 10:01 Last Admin: 02/02/19 21:33 Dose: 100 mg Documented by: Pantoprazole Sodium (Protonix) 40 mg PO QDAY [facility] Last Admin: 02/02/19 12:00 Dose: 40 mg Documented by: Thiamine HCl (Vitamin B-1) 100 mg PO QDAY [facility] Trazodone HCl (Desyrel) 50 mg PO QHS PRN PRN Reason: Insomnia Last Admin: 02/02/19 21:32 Dose: 50 mg Documented by: Results - Results Labs/Vitals: Laboratory Last Values WBC 7.2 K/mm3 (4.5-11.0) 01/31/19 18:33 RBC 4.90 M/mm3 (3.65-5.03) 01/31/19 18:33 Hgb 14.5 gm/dl (11.8-15.2) 01/31/19 18:33 Hct 44.0 % (35.5-45.6) 01/31/19 18:33 MCV 90 fl (84-94) 01/31/19 18:33 MCH 30 pg (28-32) 01/31/19 18:33 MCHC 33 % (32-34) 01/31/19 18:33 RDW 17.3 % (13.2-15.2) H 01/31/19 18:33 Plt Count 130 K/mm3 (140-440) L 01/31/19 18:33 Add Manual Diff Complete 01/31/19 18:33 Total Counted 100 01/31/19 18:33 Seg Neuts % (Manual) 60.0 % (40.0-70.0) 01/31/19 18:33 Band Neutrophils % 0 % 01/31/19 18:33 Lymphocytes % (Manual) 28.0 % (13.4-35.0) 01/31/19 18:33 Reactive Lymphs % (Man) 0 % 01/31/19 18:33 Monocytes % (Manual) 8.0 % (0.0-7.3) H 01/31/19 18:33 Eosinophils % (Manual) 2.0 % (0.0-4.3) 01/31/19 18:33 Basophils % (Manual) 2.0 % (0.0-1.8) H 01/31/19 18:33 Metamyelocytes % 0 % 01/31/19 18:33 Myelocytes % 0 % 01/31/19 18:33 Promyelocytes % 0 % 01/31/19 18:33 Blast Cells % 0 % 01/31/19 18:33 Nucleated RBC % Not Reportable 01/31/19 18:33 Seg Neutrophils # Man 4.3 K/mm3 (1.8-7.7) 01/31/19 18:33 Band Neutrophils # 0.0 K/mm3 01/31/19 18:33 Lymphocytes # (Manual) 2.0 K/mm3 (1.2-5.4) 01/31/19 18:33 Abs React Lymphs (Man) 0.0 K/mm3 01/31/19 18:33 Monocytes # (Manual) 0.6 K/mm3 (0.0-0.8) 01/31/19 18:33 Eosinophils # (Manual) 0.1 K/mm3 (0.0-0.4) 01/31/19 18:33 Basophils # (Manual) 0.1 K/mm3 (0.0-0.1) 01/31/19 18:33 Metamyelocytes # 0.0 K/mm3 01/31/19 18:33 Myelocytes # 0.0 K/mm3 01/31/19 18:33 Promyelocytes # 0.0 K/mm3 01/31/19 18:33 Blast Cells # 0.0 K/mm3 01/31/19 18:33 WBC Morphology Not Reportable 01/31/19 18:33 Hypersegmented Neuts Not Reportable 01/31/19 18:33 Hyposegmented Neuts Not Reportable 01/31/19 18:33 Hypogranular Neuts Not Reportable 01/31/19 18:33 Smudge Cells Not Reportable 01/31/19 18:33 Toxic Granulation Not Reportable 01/31/19 18:33 Toxic Vacuolation Not Reportable 01/31/19 18:33 Dohle Bodies Not Reportable 01/31/19 18:33 Pelger-Huet Anomaly Not Reportable 01/31/19 18:33 Issa Rods Not Reportable 01/31/19 18:33 Platelet Estimate Consistent w auto 01/31/19 18:33 Clumped Platelets Not Reportable 01/31/19 18:33 Plt Clumps, EDTA Not Reportable 01/31/19 18:33 Large Platelets Not Reportable 01/31/19 18:33 Giant Platelets Not Reportable 01/31/19 18:33 Platelet Satelliting Not Reportable 01/31/19 18:33 Plt Morphology Comment Not Reportable 01/31/19 18:33 RBC Morphology Not Reportable 01/31/19 18:33 Dimorphic RBCs Not Reportable 01/31/19 18:33 Polychromasia Rare 01/31/19 18:33 Hypochromasia Not Reportable 01/31/19 18:33 Poikilocytosis Not Reportable 01/31/19 18:33 Anisocytosis Not Reportable 01/31/19 18:33 Microcytosis Not Reportable 01/31/19 18:33 Macrocytosis Few 01/31/19 18:33 Spherocytes Not Reportable 01/31/19 18:33 Pappenheimer Bodies Not Reportable 01/31/19 18:33 Sickle Cells Not Reportable 01/31/19 18:33 Target Cells Not Reportable 01/31/19 18:33 Tear Drop Cells Not Reportable 01/31/19 18:33 Ovalocytes Not Reportable 01/31/19 18:33 Helmet Cells Not Reportable 01/31/19 18:33 [place] Bodies Not Reportable 01/31/19 18:33 [place] Rings Not Reportable 01/31/19 18:33 Dimple Cells Not Reportable 01/31/19 18:33 Bite Cells Not Reportable 01/31/19 18:33 Crenated Cell Not Reportable 01/31/19 18:33 Elliptocytes Not Reportable 01/31/19 18:33 Acanthocytes (Spur) Not Reportable 01/31/19 18:33 Rouleaux Not Reportable 01/31/19 18:33 Hemoglobin C Crystals Not Reportable 01/31/19 18:33 Schistocytes Not Reportable 01/31/19 18:33 Malaria parasites Not Reportable 01/31/19 18:33 Bravo Bodies Not Reportable 01/31/19 18:33 Hem Pathologist Commnt No 01/31/19 18:33 Sodium 139 mmol/L (137-145) 01/31/19 18:33 Potassium 4.2 mmol/L (3.6-5.0) 01/31/19 18:33 Chloride 101.0 mmol/L (98-107) 01/31/19 18:33 Carbon Dioxide 25 mmol/L (22-30) 01/31/19 18:33 Anion Gap 17 mmol/L 01/31/19 18:33 BUN 17 mg/dL (9-20) 01/31/19 18:33 Creatinine 1.5 mg/dL (0.8-1.5) 01/31/19 18:33 Estimated GFR 54 ml/min 01/31/19 18:33 BUN/Creatinine Ratio 11 % 01/31/19 18:33 Glucose 161 mg/dL (75-100) H 01/31/19 18:33 POC Glucose 97 (70-105) 02/03/19 06:28 Hemoglobin A1c 5.8 % (4-6) 01/31/19 07:20 Uric Acid 7.2 mg/dL (3.5-7.6) 01/31/19 18:33 Calcium 9.3 mg/dL (8.4-10.2) 01/31/19 18:33 Triglycerides 98 mg/dL (2-149) 01/31/19 07:20 Cholesterol 156 mg/dL (50-199) 01/31/19 07:20 LDL Cholesterol Direct 106 mg/dL (50-130) 01/31/19 07:20 HDL Cholesterol 47 mg/dL (40-59) 01/31/19 07:20 Cholesterol/HDL Ratio 3.31 % 01/31/19 07:20 Last Vital Signs Temp 97.7 F 02/03/19 07:32 Pulse 73 02/03/19 07:32 Resp 20 02/03/19 07:32 BP 154/51 02/03/19 07:32 Pulse Ox 94 02/03/19 07:32 Mental Status Exam - Vital signs Last Vital Signs Temp 97.7 F 02/03/19 07:32 Pulse 73 02/03/19 07:32 Resp 20 02/03/19 07:32 BP 154/51 02/03/19 07:32 Pulse Ox 94 02/03/19 07:32 - Exam Orientation: time, place, person Affect: normal Mood: congruent with affect Thought content: other (No SI/HI) Thought Process: Intact Perceptions: none Speech: normal rate and pattern Concentration: focused Motor activity: normal Level of consciousness: alert Memory: Recent Impaired Sleep Symptoms: Difficulty Falling Asleep Interaction: cooperative
--- NOTE | 2019-02-03 10:49 | Progress Note ---
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 Subjective Comment: Subjective Comment: Patient seen this morning. Per Nursing Staff, patient is alert and oriented x3, calm and cooperative, interacts with peers, able to make needs known, good appetite, ambulate on wheel chair, needs assistance with ADLS, patient is medication compliant, denies SI/HI, denies A/V/H, no signs of distress noted, will continue to monitor for safety, bed alarm applied, resting comfortably at this time. In my interview this morning with the patient, Mr. Robles stated he was in an alright mood, did not sleep well, and was cold. The patient asked he could have some extra blankets. The patient does not want to harm himself or others, presently has no thought of suicide, and has no side effects from his medications. The patient stated that his back was hurting. Objective - Criteria for Continued Treatment Criteria for Continued Treatment: Improving Level of Functioning, Stablizing Level of Functioning. Mental Status Exam Orientation: time, place, person Affect: normal Mood: congruent with affect Thought content: other (No SI/HI) Thought Process: Intact Perceptions: none Speech: normal rate and pattern Concentration: focused Motor activity: normal Level of consciousness: alert Memory: Recent Impaired Sleep Symptoms: Difficulty Falling Asleep Interaction: cooperative Assessment and Plan (1) Major neurocognitive disorder due to Alzheimer's disease, probable, with behavioral disturbance Current Visit: Yes Status: Acute (1) Major neurocognitive disorder due to Alzheimer's disease, probable, with behavioral disturbance Current Visit: Yes Status: Acute Plan to address problem: Continue inpatient psychiatric evaluation, medication adjustment and close monitoring The patient's behavior, mood, sleep and appetite will be closely monitored. Patient will be enrolled in individual and group therapeutic sessions and encouraged to attend. Patient will be provided with a safe and structured environment. Patient's physical health needs will be addressed by the Hospitalist. Hospitalist Consulted Social Assessment will be completed and the Mobile Ui Designer will work with patient and family to ensure a suitable and safe disposition Medication adjustment will be made as clinically indicated The patient agreed on the treatment plan, understood the risk, benefit, alternative treatment, potential consequence of no treatment, and gave informed consent. Assessment and Plan - Patient Problems (1) Major neurocognitive disorder due to Alzheimer's disease, probable, with behavioral disturbance Current Visit: Yes Status: Acute Medications and Allergies Allergies Allergy/AdvReac Type Severity Reaction Status Date / Time No Known Allergies Allergy Unverified 04/17/13 18:54 Home Medications Medication Instructions Recorded Confirmed Last Taken Type Bisacodyl [Dulcolax tab] 10 mg PO QDAY PRN #30 tablet 04/22/13 01/31/19 Unknown Rx Insulin Glargine,Hum.rec.anlog 20 unit SQ QHS #1 pen 04/22/13 01/31/19 Unknown Rx [Lantus Solostar] Lisinopril [Zestril TAB] 20 mg PO QDAY #30 tablet 04/22/13 01/31/19 Unknown Rx Metoprolol [Lopressor TAB] 25 mg PO BID #60 tablet 04/22/13 01/31/19 Unknown Rx Pantoprazole [Protonix TAB] 40 mg PO QDAY #30 tablet 06/30/16 01/31/19 Unknown Rx Albuterol Sulfate [Proair 90 mcg IH Q4HR PRN #2 aer.pow.ba 01/30/19 01/31/19 Unknown Rx Respiclick] Nitrofurantoin [place]/M-Cryst 100 mg PO Q12HR #13 capsule 01/30/19 01/31/19 Unknown Rx [Macrobid CAP] Active Meds: Active Medications Albuterol (Proventil) 2.5 mg IH Q4HRT PRN PRN Reason: Shortness Of Breath,WHEEZING Bisacodyl (Dulcolax) 10 mg PO QDAY PRN PRN Reason: Constipation Dextrose (D50w (25gm) Syringe) 50 ml IV Q30MIN PRN; Protocol PRN Reason: Hypoglycemia Fish Oil (Fish Oil) 2,000 mg PO BID [facility] Last Admin: 02/02/19 21:33 Dose: 2,000 mg Documented by: Insulin Glargine (Lantus) 20 units SUB-Q QHS [facility] Last Admin: 02/02/19 21:48 Dose: 20 units Documented by: Insulin Human Regular (Humulin R) 0 units SUB-Q [facility]; Protocol Last Admin: 02/03/19 07:50 Dose: Not Given Documented by: Lisinopril (Zestril) 20 mg PO QDAY [facility] Last Admin: 02/02/19 12:00 Dose: 20 mg Documented by: Melatonin (Melatonin) 5 mg PO QPM [facility] Last Admin: 02/02/19 16:59 Dose: 5 mg Documented by: Metoprolol Tartrate (Metoprolol) 25 mg PO BID [facility] Last Admin: 02/02/19 21:33 Dose: 25 mg Documented by: Nitrofurantoin Macrocrystals (Macrobid) 100 mg PO Q12HR [facility] Stop: 02/07/19 10:01 Last Admin: 02/02/19 21:33 Dose: 100 mg Documented by: Pantoprazole Sodium (Protonix) 40 mg PO QDAY [facility] Last Admin: 02/02/19 12:00 Dose: 40 mg Documented by: Thiamine HCl (Vitamin B-1) 100 mg PO QDAY [facility] Trazodone HCl (Desyrel) 50 mg PO QHS PRN PRN Reason: Insomnia Last Admin: 02/02/19 21:32 Dose: 50 mg Documented by: Results - Results Labs/Vitals: Laboratory Last Values WBC 7.2 K/mm3 (4.5-11.0) 01/31/19 18:33 RBC 4.90 M/mm3 (3.65-5.03) 01/31/19 18:33 Hgb 14.5 gm/dl (11.8-15.2) 01/31/19 18:33 Hct 44.0 % (35.5-45.6) 01/31/19 18:33 MCV 90 fl (84-94) 01/31/19 18:33 MCH 30 pg (28-32) 01/31/19 18:33 MCHC 33 % (32-34) 01/31/19 18:33 RDW 17.3 % (13.2-15.2) H 01/31/19 18:33 Plt Count 130 K/mm3 (140-440) L 01/31/19 18:33 Add Manual Diff Complete 01/31/19 18:33 Total Counted 100 01/31/19 18:33 Seg Neuts % (Manual) 60.0 % (40.0-70.0) 01/31/19 18:33 Band Neutrophils % 0 % 01/31/19 18:33 Lymphocytes % (Manual) 28.0 % (13.4-35.0) 01/31/19 18:33 Reactive Lymphs % (Man) 0 % 01/31/19 18:33 Monocytes % (Manual) 8.0 % (0.0-7.3) H 01/31/19 18:33 Eosinophils % (Manual) 2.0 % (0.0-4.3) 01/31/19 18:33 Basophils % (Manual) 2.0 % (0.0-1.8) H 01/31/19 18:33 Metamyelocytes % 0 % 01/31/19 18:33 Myelocytes % 0 % 01/31/19 18:33 Promyelocytes % 0 % 01/31/19 18:33 Blast Cells % 0 % 01/31/19 18:33 Nucleated RBC % Not Reportable 01/31/19 18:33 Seg Neutrophils # Man 4.3 K/mm3 (1.8-7.7) 01/31/19 18:33 Band Neutrophils # 0.0 K/mm3 01/31/19 18:33 Lymphocytes # (Manual) 2.0 K/mm3 (1.2-5.4) 01/31/19 18:33 Abs React Lymphs (Man) 0.0 K/mm3 01/31/19 18:33 Monocytes # (Manual) 0.6 K/mm3 (0.0-0.8) 01/31/19 18:33 Eosinophils # (Manual) 0.1 K/mm3 (0.0-0.4) 01/31/19 18:33 Basophils # (Manual) 0.1 K/mm3 (0.0-0.1) 01/31/19 18:33 Metamyelocytes # 0.0 K/mm3 01/31/19 18:33 Myelocytes # 0.0 K/mm3 01/31/19 18:33 Promyelocytes # 0.0 K/mm3 01/31/19 18:33 Blast Cells # 0.0 K/mm3 01/31/19 18:33 WBC Morphology Not Reportable 01/31/19 18:33 Hypersegmented Neuts Not Reportable 01/31/19 18:33 Hyposegmented Neuts Not Reportable 01/31/19 18:33 Hypogranular Neuts Not Reportable 01/31/19 18:33 Smudge Cells Not Reportable 01/31/19 18:33 Toxic Granulation Not Reportable 01/31/19 18:33 Toxic Vacuolation Not Reportable 01/31/19 18:33 Dohle Bodies Not Reportable 01/31/19 18:33 Pelger-Huet Anomaly Not Reportable 01/31/19 18:33 Issa Rods Not Reportable 01/31/19 18:33 Platelet Estimate Consistent w auto 01/31/19 18:33 Clumped Platelets Not Reportable 01/31/19 18:33 Plt Clumps, EDTA Not Reportable 01/31/19 18:33 Large Platelets Not Reportable 01/31/19 18:33 Giant Platelets Not Reportable 01/31/19 18:33 Platelet Satelliting Not Reportable 01/31/19 18:33 Plt Morphology Comment Not Reportable 01/31/19 18:33 RBC Morphology Not Reportable 01/31/19 18:33 Dimorphic RBCs Not Reportable 01/31/19 18:33 Polychromasia Rare 01/31/19 18:33 Hypochromasia Not Reportable 01/31/19 18:33 Poikilocytosis Not Reportable 01/31/19 18:33 Anisocytosis Not Reportable 01/31/19 18:33 Microcytosis Not Reportable 01/31/19 18:33 Macrocytosis Few 01/31/19 18:33 Spherocytes Not Reportable 01/31/19 18:33 Pappenheimer Bodies Not Reportable 01/31/19 18:33 Sickle Cells Not Reportable 01/31/19 18:33 Target Cells Not Reportable 01/31/19 18:33 Tear Drop Cells Not Reportable 01/31/19 18:33 Ovalocytes Not Reportable 01/31/19 18:33 Helmet Cells Not Reportable 01/31/19 18:33 Conrad-Wardner Bodies Not Reportable 01/31/19 18:33 [place] Rings Not Reportable 01/31/19 18:33 Mcandrews Cells Not Reportable 01/31/19 18:33 Bite Cells Not Reportable 01/31/19 18:33 Crenated Cell Not Reportable 01/31/19 18:33 Elliptocytes Not Reportable 01/31/19 18:33 Acanthocytes (Spur) Not Reportable 01/31/19 18:33 Rouleaux Not Reportable 01/31/19 18:33 Hemoglobin C Crystals Not Reportable 01/31/19 18:33 Schistocytes Not Reportable 01/31/19 18:33 Malaria parasites Not Reportable 01/31/19 18:33 Bravo Bodies Not Reportable 01/31/19 18:33 Hem Pathologist Commnt No 01/31/19 18:33 Sodium 139 mmol/L (137-145) 01/31/19 18:33 Potassium 4.2 mmol/L (3.6-5.0) 01/31/19 18:33 Chloride 101.0 mmol/L (98-107) 01/31/19 18:33 Carbon Dioxide 25 mmol/L (22-30) 01/31/19 18:33 Anion Gap 17 mmol/L 01/31/19 18:33 BUN 17 mg/dL (9-20) 01/31/19 18:33 Creatinine 1.5 mg/dL (0.8-1.5) 01/31/19 18:33 Estimated GFR 54 ml/min 01/31/19 18:33 BUN/Creatinine Ratio 11 % 01/31/19 18:33 Glucose 161 mg/dL (75-100) H 01/31/19 18:33 POC Glucose 97 (70-105) 02/03/19 06:28 Hemoglobin A1c 5.8 % (4-6) 01/31/19 07:20 Uric Acid 7.2 mg/dL (3.5-7.6) 01/31/19 18:33 Calcium 9.3 mg/dL (8.4-10.2) 01/31/19 18:33 Triglycerides 98 mg/dL (2-149) 01/31/19 07:20 Cholesterol 156 mg/dL (50-199) 01/31/19 07:20 LDL Cholesterol Direct 106 mg/dL (50-130) 01/31/19 07:20 HDL Cholesterol 47 mg/dL (40-59) 01/31/19 07:20 Cholesterol/HDL Ratio 3.31 % 01/31/19 07:20 Last Vital Signs Temp 97.7 F 02/03/19 07:32 Pulse 73 02/03/19 07:32 Resp 20 02/03/19 07:32 BP 154/51 02/03/19 07:32 Pulse Ox 94 02/03/19 07:32
[2019-02-03] MEDS: PANTOPRAZOLE 40 MG TAB PO SCH (10:57)
[2019-02-03] MEDS: THIAMINE 100 MG TAB PO SCH (10:57)
[2019-02-03] MEDS: LISINOPRIL 20 MG TAB PO SCH (10:57)
[2019-02-03] MEDS: NITROFURANTOIN MONOHYD/M-CRYST 100 MG CAP PO SCH ×2 (10:57→21:56)
[2019-02-03] MEDS: METOPROLOL TARTRATE 25 MG TAB PO SCH ×2 (10:57→21:56)
[2019-02-03] MEDS: OMEGA-3 FATTY ACIDS/FISH OIL 1 GRAM CAP PO SCH ×2 (11:10→21:55)
[2019-02-03] MEDS ORDERED: ACETAMINOPHEN 325 MG TAB PO PRN (12:11)
[2019-02-03] MEDS: MELATONIN 5 MG TAB PO SCH (18:11)
[2019-02-03] MEDS: traZODone 50 MG TAB PO PRN (21:56)
[2019-02-03] MEDS: INSULIN GLARGINE 100 UNITS/ML SUB-Q SCH (22:07)
[2019-02-04] MEDS: INSULIN REGULAR, HUMAN 100 UNITS/1 ML SUB-Q SCH ×4 (07:37→22:00)
--- NOTE | 2019-02-04 09:56 | Progress Note ---
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 Subjective Comment: Subjective Comment: Patient seen this morning. Per Nursing Staff, Pt is medication compliant, good appetite, able to make needs know, calm and cooperative, denies SI/HI, denies A/V/H, no complaints voiced,, 1 person, assist, vital signs stable, denies pain, no distress noted, [id number] checks on going In my interview with the patient this morning, he reports good and stable mood, denies SI/HI/AVH/Paranoia. Objective - Criteria for Continued Treatment Criteria for Continued Treatment: Improving Level of Functioning, Stablizing Level of Functioning. Mental Status Exam Orientation: time, place, person Affect: normal Mood: congruent with affect Thought content: other (No SI/HI) Thought Process: Intact Perceptions: none Speech: normal rate and pattern Concentration: focused Motor activity: normal Level of consciousness: alert Memory: Recent Impaired Sleep Symptoms: Difficulty Falling Asleep Interaction: cooperative Assessment and Plan (1) Major neurocognitive disorder due to Alzheimer's disease, probable, with behavioral disturbance Current Visit: Yes Status: Acute (1) Major neurocognitive disorder due to Alzheimer's disease, probable, with behavioral disturbance Current Visit: Yes Status: Acute Plan to address problem: Continue inpatient psychiatric evaluation, medication adjustment and close monitoring Building Components Designer is working on Placement The patient's behavior, mood, sleep and appetite will be closely monitored. Patient will be enrolled in individual and group therapeutic sessions and encouraged to attend. Patient will be provided with a safe and structured environment. Patient's physical health needs will be addressed by the Hospitalist. Hospitalist Consulted Social Assessment will be completed and the Building Components Designer will work with patient and family to ensure a suitable and safe disposition Medication adjustment will be made as clinically indicated The patient agreed on the treatment plan, understood the risk, benefit, alternative treatment, potential consequence of no treatment, and gave informed consent. Assessment and Plan - Patient Problems (1) Major neurocognitive disorder due to Alzheimer's disease, probable, with behavioral disturbance Current Visit: Yes Status: Acute Medications and Allergies Allergies Allergy/AdvReac Type Severity Reaction Status Date / Time No Known Allergies Allergy Unverified 04/17/13 18:54 Home Medications Medication Instructions Recorded Confirmed Last Taken Type Bisacodyl [Dulcolax tab] 10 mg PO QDAY PRN #30 tablet 04/22/13 01/31/19 Unknown Rx Insulin Glargine,Hum.rec.anlog 20 unit SQ QHS #1 pen 04/22/13 01/31/19 Unknown Rx [Lantus Solostar] Lisinopril [Zestril TAB] 20 mg PO QDAY #30 tablet 04/22/13 01/31/19 Unknown Rx Metoprolol [Lopressor TAB] 25 mg PO BID #60 tablet 04/22/13 01/31/19 Unknown Rx Pantoprazole [Protonix TAB] 40 mg PO QDAY #30 tablet 06/30/16 01/31/19 Unknown Rx Albuterol Sulfate [Proair 90 mcg IH Q4HR PRN #2 aer.pow.ba 01/30/19 01/31/19 Unknown Rx Respiclick] Nitrofurantoin [place]/M-Cryst 100 mg PO Q12HR #13 capsule 01/30/19 01/31/19 Unknown Rx [Macrobid CAP] Active Meds: Active Medications Acetaminophen (Tylenol) 650 mg PO Q6H PRN PRN Reason: Pain, Mild (1-3) Albuterol (Proventil) 2.5 mg IH Q4HRT PRN PRN Reason: Shortness Of Breath,WHEEZING Bisacodyl (Dulcolax) 10 mg PO QDAY PRN PRN Reason: Constipation Dextrose (D50w (25gm) Syringe) 50 ml IV Q30MIN PRN; Protocol PRN Reason: Hypoglycemia Fish Oil (Fish Oil) 2,000 mg PO BID [facility] Last Admin: 02/03/19 21:55 Dose: 2,000 mg Documented by: Insulin Glargine (Lantus) 20 units SUB-Q QHS [facility] Last Admin: 02/03/19 22:07 Dose: 20 units Documented by: Insulin Human Regular (Humulin R) 0 [facility]; Protocol Last Admin: 02/04/19 07:37 Dose: Not Given Documented by: Lisinopril (Zestril) 20 mg PO QDAY [facility] Last Admin: 02/03/19 10:57 Dose: 20 mg Documented by: Melatonin (Melatonin) 5 mg PO QPM [facility] Last Admin: 02/03/19 18:11 Dose: 5 mg Documented by: Metoprolol Tartrate (Metoprolol) 25 mg PO BID [facility] Last Admin: 02/03/19 21:56 Dose: 25 mg Documented by: Nitrofurantoin Macrocrystals (Macrobid) 100 mg PO Q12HR [facility] Stop: 02/07/19 10:01 Last Admin: 02/03/19 21:56 Dose: 100 mg Documented by: Pantoprazole Sodium (Protonix) 40 mg PO QDAY [facility] Last Admin: 02/03/19 10:57 Dose: 40 mg Documented by: Thiamine HCl (Vitamin B-1) 100 mg PO QDAY [facility] Last Admin: 02/03/19 10:57 Dose: 100 mg Documented by: Trazodone HCl (Desyrel) 50 mg PO QHS PRN PRN Reason: Insomnia Last Admin: 02/03/19 21:56 Dose: 50 mg Documented by: Results - Results Labs/Vitals: Laboratory Last Values WBC 7.2 K/mm3 (4.5-11.0) 01/31/19 18:33 RBC 4.90 M/mm3 (3.65-5.03) 01/31/19 18:33 Hgb 14.5 gm/dl (11.8-15.2) 01/31/19 18:33 Hct 44.0 % (35.5-45.6) 01/31/19 18:33 MCV 90 fl (84-94) 01/31/19 18:33 MCH 30 pg (28-32) 01/31/19 18:33 MCHC 33 % (32-34) 01/31/19 18:33 RDW 17.3 % (13.2-15.2) H 01/31/19 18:33 Plt Count 130 K/mm3 (140-440) L 01/31/19 18:33 Add Manual Diff Complete 01/31/19 18:33 Total Counted 100 01/31/19 18:33 Seg Neuts % (Manual) 60.0 % (40.0-70.0) 01/31/19 18:33 Band Neutrophils % 0 % 01/31/19 18:33 Lymphocytes % (Manual) 28.0 % (13.4-35.0) 01/31/19 18:33 Reactive Lymphs % (Man) 0 % 01/31/19 18:33 Monocytes % (Manual) 8.0 % (0.0-7.3) H 01/31/19 18:33 Eosinophils % (Manual) 2.0 % (0.0-4.3) 01/31/19 18:33 Basophils % (Manual) 2.0 % (0.0-1.8) H 01/31/19 18:33 Metamyelocytes % 0 % 01/31/19 18:33 Myelocytes % 0 % 01/31/19 18:33 Promyelocytes % 0 % 01/31/19 18:33 Blast Cells % 0 % 01/31/19 18:33 Nucleated RBC % Not Reportable 01/31/19 18:33 Seg Neutrophils # Man 4.3 K/mm3 (1.8-7.7) 01/31/19 18:33 Band Neutrophils # 0.0 K/mm3 01/31/19 18:33 Lymphocytes # (Manual) 2.0 K/mm3 (1.2-5.4) 01/31/19 18:33 Abs React Lymphs (Man) 0.0 K/mm3 01/31/19 18:33 Monocytes # (Manual) 0.6 K/mm3 (0.0-0.8) 01/31/19 18:33 Eosinophils # (Manual) 0.1 K/mm3 (0.0-0.4) 01/31/19 18:33 Basophils # (Manual) 0.1 K/mm3 (0.0-0.1) 01/31/19 18:33 Metamyelocytes # 0.0 K/mm3 01/31/19 18:33 Myelocytes # 0.0 K/mm3 01/31/19 18:33 Promyelocytes # 0.0 K/mm3 01/31/19 18:33 Blast Cells # 0.0 K/mm3 01/31/19 18:33 WBC Morphology Not Reportable 01/31/19 18:33 Hypersegmented Neuts Not Reportable 01/31/19 18:33 Hyposegmented Neuts Not Reportable 01/31/19 18:33 Hypogranular Neuts Not Reportable 01/31/19 18:33 Smudge Cells Not Reportable 01/31/19 18:33 Toxic Granulation Not Reportable 01/31/19 18:33 Toxic Vacuolation Not Reportable 01/31/19 18:33 Dohle Bodies Not Reportable 01/31/19 18:33 Pelger-Huet Anomaly Not Reportable 01/31/19 18:33 Issa Rods Not Reportable 01/31/19 18:33 Platelet Estimate Consistent w auto 01/31/19 18:33 Clumped Platelets Not Reportable 01/31/19 18:33 Plt Clumps, EDTA Not Reportable 01/31/19 18:33 Large Platelets Not Reportable 01/31/19 18:33 Giant Platelets Not Reportable 01/31/19 18:33 Platelet Satelliting Not Reportable 01/31/19 18:33 Plt Morphology Comment Not Reportable 01/31/19 18:33 RBC Morphology Not Reportable 01/31/19 18:33 Dimorphic RBCs Not Reportable 01/31/19 18:33 Polychromasia Rare 01/31/19 18:33 Hypochromasia Not Reportable 01/31/19 18:33 Poikilocytosis Not Reportable 01/31/19 18:33 Anisocytosis Not Reportable 01/31/19 18:33 Microcytosis Not Reportable 01/31/19 18:33 Macrocytosis Few 01/31/19 18:33 Spherocytes Not Reportable 01/31/19 18:33 Pappenheimer Bodies Not Reportable 01/31/19 18:33 Sickle Cells Not Reportable 01/31/19 18:33 Target Cells Not Reportable 01/31/19 18:33 Tear Drop Cells Not Reportable 01/31/19 18:33 Ovalocytes Not Reportable 01/31/19 18:33 Helmet Cells Not Reportable 01/31/19 18:33 Conrad-Greenhorn Bodies Not Reportable 01/31/19 18:33 [place] Rings Not Reportable 01/31/19 18:33 Dimple Cells Not Reportable 01/31/19 18:33 Bite Cells Not Reportable 01/31/19 18:33 Crenated Cell Not Reportable 01/31/19 18:33 Elliptocytes Not Reportable 01/31/19 18:33 Acanthocytes (Spur) Not Reportable 01/31/19 18:33 Rouleaux Not Reportable 01/31/19 18:33 Hemoglobin C Crystals Not Reportable 01/31/19 18:33 Schistocytes Not Reportable 01/31/19 18:33 Malaria parasites Not Reportable 01/31/19 18:33 Bravo Bodies Not Reportable 01/31/19 18:33 Hem Pathologist Commnt No 01/31/19 18:33 Sodium 139 mmol/L (137-145) 01/31/19 18:33 Potassium 4.2 mmol/L (3.6-5.0) 01/31/19 18:33 Chloride 101.0 mmol/L (98-107) 01/31/19 18:33 Carbon Dioxide 25 mmol/L (22-30) 01/31/19 18:33 Anion Gap 17 mmol/L 01/31/19 18:33 BUN 17 mg/dL (9-20) 01/31/19 18:33 Creatinine 1.5 mg/dL (0.8-1.5) 01/31/19 18:33 Estimated GFR 54 ml/min 01/31/19 18:33 BUN/Creatinine Ratio 11 % 01/31/19 18:33 Glucose 161 mg/dL (75-100) H 01/31/19 18:33 POC Glucose 94 (70-105) 02/04/19 06:43 Hemoglobin A1c 5.8 % (4-6) 01/31/19 07:20 Uric Acid 7.2 mg/dL (3.5-7.6) 01/31/19 18:33 Calcium 9.3 mg/dL (8.4-10.2) 01/31/19 18:33 Triglycerides 98 mg/dL (2-149) 01/31/19 07:20 Cholesterol 156 mg/dL (50-199) 01/31/19 07:20 LDL Cholesterol Direct 106 mg/dL (50-130) 01/31/19 07:20 HDL Cholesterol 47 mg/dL (40-59) 01/31/19 07:20 Cholesterol/HDL Ratio 3.31 % 01/31/19 07:20 Last Vital Signs Temp 98.1 F 02/03/19 19:50 Pulse 63 02/03/19 21:56 Resp 20 02/03/19 19:50 BP 144/66 02/03/19 21:56 Pulse Ox 93 02/03/19 19:50
[2019-02-04] MEDS: PANTOPRAZOLE 40 MG TAB PO SCH (11:44)
[2019-02-04] MEDS: NITROFURANTOIN MONOHYD/M-CRYST 100 MG CAP PO SCH ×2 (11:44→21:13)
[2019-02-04] MEDS: THIAMINE 100 MG TAB PO SCH (11:44)
[2019-02-04] MEDS: OMEGA-3 FATTY ACIDS/FISH OIL 1 GRAM CAP PO SCH ×2 (11:45→21:13)
[2019-02-04] MEDS: METOPROLOL TARTRATE 25 MG TAB PO SCH ×2 (11:49→21:13)
[2019-02-04] MEDS: LISINOPRIL 20 MG TAB PO SCH (11:50)
[2019-02-04] MEDS: MELATONIN 5 MG TAB PO SCH (19:22)
[2019-02-04] MEDS: ACETAMINOPHEN 325 MG TAB PO PRN (19:22)
[2019-02-04] MEDS: INSULIN GLARGINE 100 UNITS/ML SUB-Q SCH (23:48)
[2019-02-05] MEDS: ACETAMINOPHEN 325 MG TAB PO PRN (02:00)
--- NOTE | 2019-02-05 07:43 | Progress Note ---
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 Subjective Comment: Subjective Comment: Patient seen this morning. Per Nursing Staff, Shift report obtained on patient. Received in day room a&ox4. Calm and cooperative. Denies pain. Denies SI, HI, and no A/V hallucinations endorsed or observed. In my interview with the patient this morning, he reports good and stable mood, denies SI/HI/AVH/Paranoia. Objective - Criteria for Continued Treatment Criteria for Continued Treatment: Improving Level of Functioning, Stablizing Level of Functioning. Mental Status Exam Orientation: time, place, person Affect: normal Mood: congruent with affect Thought content: other (No SI/HI) Thought Process: Intact Perceptions: none Speech: normal rate and pattern Concentration: focused Motor activity: normal Level of consciousness: alert Memory: Recent Impaired Sleep Symptoms: Difficulty Falling Asleep Interaction: cooperative Assessment and Plan (1) Major neurocognitive disorder due to Alzheimer's disease, probable, with behavioral disturbance Current Visit: Yes Status: Acute (1) Major neurocognitive disorder due to Alzheimer's disease, probable, with behavioral disturbance Current Visit: Yes Status: Acute Plan to address problem: Continue inpatient psychiatric evaluation, medication adjustment and close monitoring Gas Cutter is working on Placement The patient's behavior, mood, sleep and appetite will be closely monitored. Patient will be enrolled in individual and group therapeutic sessions and encouraged to attend. Patient will be provided with a safe and structured environment. Patient's physical health needs will be addressed by the Hospitalist. Hospitalist Consulted Social Assessment will be completed and the Gas Cutter will work with patient and family to ensure a suitable and safe disposition Medication adjustment will be made as clinically indicated The patient agreed on the treatment plan, understood the risk, benefit, alternative treatment, potential consequence of no treatment, and gave informed consent. Assessment and Plan - Patient Problems (1) Major neurocognitive disorder due to Alzheimer's disease, probable, with behavioral disturbance Current Visit: Yes Status: Acute Medications and Allergies Allergies Allergy/AdvReac Type Severity Reaction Status Date / Time No Known Allergies Allergy Unverified 04/17/13 18:54 Home Medications Medication Instructions Recorded Confirmed Last Taken Type Bisacodyl [Dulcolax tab] 10 mg PO QDAY PRN #30 tablet 04/22/13 01/31/19 Unknown Rx Insulin Glargine,Hum.rec.anlog 20 unit SQ QHS #1 pen 04/22/13 01/31/19 Unknown Rx [Lantus Solostar] Lisinopril [Zestril TAB] 20 mg PO QDAY #30 tablet 04/22/13 01/31/19 Unknown Rx Metoprolol [Lopressor TAB] 25 mg PO BID #60 tablet 04/22/13 01/31/19 Unknown Rx Pantoprazole [Protonix TAB] 40 mg PO QDAY #30 tablet 06/30/16 01/31/19 Unknown Rx Albuterol Sulfate [Proair 90 mcg IH Q4HR PRN #2 aer.pow.ba 01/30/19 01/31/19 Unknown Rx Respiclick] Nitrofurantoin Kay/M-Cryst 100 mg PO Q12HR #13 capsule 01/30/19 01/31/19 Unknown Rx [Macrobid CAP] Active Meds: Active Medications Acetaminophen (Tylenol) 650 mg PO Q6H PRN PRN Reason: Pain, Mild (1-3) Last Admin: 02/05/19 02:00 Dose: 650 mg Documented by: Albuterol (Proventil) 2.5 mg IH Q4HRT PRN PRN Reason: Shortness Of Breath,WHEEZING Bisacodyl (Dulcolax) 10 mg PO QDAY PRN PRN Reason: Constipation Dextrose (D50w (25gm) Syringe) 50 ml IV Q30MIN PRN; Protocol PRN Reason: Hypoglycemia Fish Oil (Fish Oil) 2,000 mg PO BID [facility] Last Admin: 02/04/19 21:13 Dose: 2,000 mg Documented by: Insulin Glargine (Lantus) 20 units SUB-Q QHS [facility] Last Admin: 02/04/19 23:48 Dose: 20 units Documented by: Insulin Human Regular (Humulin R) 0 units SUB-Q [facility]; Protocol Last Admin: 02/04/19 22:00 Dose: Not Given Documented by: Lisinopril (Zestril) 20 mg PO QDAY [facility] Last Admin: 02/04/19 11:50 Dose: 20 mg Documented by: Melatonin (Melatonin) 5 mg PO QPM [facility] Last Admin: 02/04/19 19:22 Dose: 5 mg Documented by: Metoprolol Tartrate (Metoprolol) 25 mg PO BID [facility] Last Admin: 02/04/19 21:13 Dose: 25 mg Documented by: Nitrofurantoin Macrocrystals (Macrobid) 100 mg PO Q12HR [facility] Stop: 02/07/19 10:01 Last Admin: 02/04/19 21:13 Dose: 100 mg Documented by: Pantoprazole Sodium (Protonix) 40 mg PO QDAY [facility] Last Admin: 02/04/19 11:44 Dose: 40 mg Documented by: Thiamine HCl (Vitamin B-1) 100 mg PO QDAY [facility] Last Admin: 02/04/19 11:44 Dose: 100 mg Documented by: Trazodone HCl (Desyrel) 50 mg PO QHS PRN PRN Reason: Insomnia Last Admin: 02/03/19 21:56 Dose: 50 mg Documented by: Results - Results Labs/Vitals: Laboratory Last Values WBC 7.2 K/mm3 (4.5-11.0) 01/31/19 18:33 RBC 4.90 M/mm3 (3.65-5.03) 01/31/19 18:33 Hgb 14.5 gm/dl (11.8-15.2) 01/31/19 18:33 Hct 44.0 % (35.5-45.6) 01/31/19 18:33 MCV 90 fl (84-94) 01/31/19 18:33 MCH 30 pg (28-32) 01/31/19 18:33 MCHC 33 % (32-34) 01/31/19 18:33 RDW 17.3 % (13.2-15.2) H 01/31/19 18:33 Plt Count 130 K/mm3 (140-440) L 01/31/19 18:33 Add Manual Diff Complete 01/31/19 18:33 Total Counted 100 01/31/19 18:33 Seg Neuts % (Manual) 60.0 % (40.0-70.0) 01/31/19 18:33 Band Neutrophils % 0 % 01/31/19 18:33 Lymphocytes % (Manual) 28.0 % (13.4-35.0) 01/31/19 18:33 Reactive Lymphs % (Man) 0 % 01/31/19 18:33 Monocytes % (Manual) 8.0 % (0.0-7.3) H 01/31/19 18:33 Eosinophils % (Manual) 2.0 % (0.0-4.3) 01/31/19 18:33 Basophils % (Manual) 2.0 % (0.0-1.8) H 01/31/19 18:33 Metamyelocytes % 0 % 01/31/19 18:33 Myelocytes % 0 % 01/31/19 18:33 Promyelocytes % 0 % 01/31/19 18:33 Blast Cells % 0 % 01/31/19 18:33 Nucleated RBC % Not Reportable 01/31/19 18:33 Seg Neutrophils # Man 4.3 K/mm3 (1.8-7.7) 01/31/19 18:33 Band Neutrophils # 0.0 K/mm3 01/31/19 18:33 Lymphocytes # (Manual) 2.0 K/mm3 (1.2-5.4) 01/31/19 18:33 Abs React Lymphs (Man) 0.0 K/mm3 01/31/19 18:33 Monocytes # (Manual) 0.6 K/mm3 (0.0-0.8) 01/31/19 18:33 Eosinophils # (Manual) 0.1 K/mm3 (0.0-0.4) 01/31/19 18:33 Basophils # (Manual) 0.1 K/mm3 (0.0-0.1) 01/31/19 18:33 Metamyelocytes # 0.0 K/mm3 01/31/19 18:33 Myelocytes # 0.0 K/mm3 01/31/19 18:33 Promyelocytes # 0.0 K/mm3 01/31/19 18:33 Blast Cells # 0.0 K/mm3 01/31/19 18:33 WBC Morphology Not Reportable 01/31/19 18:33 Hypersegmented Neuts Not Reportable 01/31/19 18:33 Hyposegmented Neuts Not Reportable 01/31/19 18:33 Hypogranular Neuts Not Reportable 01/31/19 18:33 Smudge Cells Not Reportable 01/31/19 18:33 Toxic Granulation Not Reportable 01/31/19 18:33 Toxic Vacuolation Not Reportable 01/31/19 18:33 Dohle Bodies Not Reportable 01/31/19 18:33 Pelger-Huet Anomaly Not Reportable 01/31/19 18:33 Issa Rods Not Reportable 01/31/19 18:33 Platelet Estimate Consistent w auto 01/31/19 18:33 Clumped Platelets Not Reportable 01/31/19 18:33 Plt Clumps, EDTA Not Reportable 01/31/19 18:33 Large Platelets Not Reportable 01/31/19 18:33 Giant Platelets Not Reportable 01/31/19 18:33 Platelet Satelliting Not Reportable 01/31/19 18:33 Plt Morphology Comment Not Reportable 01/31/19 18:33 RBC Morphology Not Reportable 01/31/19 18:33 Dimorphic RBCs Not Reportable 01/31/19 18:33 Polychromasia Rare 01/31/19 18:33 Hypochromasia Not Reportable 01/31/19 18:33 Poikilocytosis Not Reportable 01/31/19 18:33 Anisocytosis Not Reportable 01/31/19 18:33 Microcytosis Not Reportable 01/31/19 18:33 Macrocytosis Few 01/31/19 18:33 Spherocytes Not Reportable 01/31/19 18:33 Pappenheimer Bodies Not Reportable 01/31/19 18:33 Sickle Cells Not Reportable 01/31/19 18:33 Target Cells Not Reportable 01/31/19 18:33 Tear Drop Cells Not Reportable 01/31/19 18:33 Ovalocytes Not Reportable 01/31/19 18:33 Helmet Cells Not Reportable 01/31/19 18:33 [place] Bodies Not Reportable 01/31/19 18:33 [place] Rings Not Reportable 01/31/19 18:33 [place] Cells Not Reportable 01/31/19 18:33 Bite Cells Not Reportable 01/31/19 18:33 Crenated Cell Not Reportable 01/31/19 18:33 Elliptocytes Not Reportable 01/31/19 18:33 Acanthocytes (Spur) Not Reportable 01/31/19 18:33 Rouleaux Not Reportable 01/31/19 18:33 Hemoglobin C Crystals Not Reportable 01/31/19 18:33 Schistocytes Not Reportable 01/31/19 18:33 Malaria parasites Not Reportable 01/31/19 18:33 Bravo Bodies Not Reportable 01/31/19 18:33 Hem Pathologist Commnt No 01/31/19 18:33 Sodium 139 mmol/L (137-145) 01/31/19 18:33 Potassium 4.2 mmol/L (3.6-5.0) 01/31/19 18:33 Chloride 101.0 mmol/L (98-107) 01/31/19 18:33 Carbon Dioxide 25 mmol/L (22-30) 01/31/19 18:33 Anion Gap 17 mmol/L 01/31/19 18:33 BUN 17 mg/dL (9-20) 01/31/19 18:33 Creatinine 1.5 mg/dL (0.8-1.5) 01/31/19 18:33 Estimated GFR 54 ml/min 01/31/19 18:33 BUN/Creatinine Ratio 11 % 01/31/19 18:33 Glucose 161 mg/dL (75-100) H 01/31/19 18:33 POC Glucose 145 (70-105) H 02/04/19 19:37 Hemoglobin A1c 5.8 % (4-6) 01/31/19 07:20 Uric Acid 7.2 mg/dL (3.5-7.6) 01/31/19 18:33 Calcium 9.3 mg/dL (8.4-10.2) 01/31/19 18:33 Triglycerides 98 mg/dL (2-149) 01/31/19 07:20 Cholesterol 156 mg/dL (50-199) 01/31/19 07:20 LDL Cholesterol Direct 106 mg/dL (50-130) 01/31/19 07:20 HDL Cholesterol 47 mg/dL (40-59) 01/31/19 07:20 Cholesterol/HDL Ratio 3.31 % 01/31/19 07:20 Last Vital Signs Temp 97.1 F L 02/04/19 20:22 Pulse 67 02/04/19 20:22 Resp 16 02/04/19 20:22 BP 163/70 02/04/19 20:22 Pulse Ox 93 02/04/19 20:22
[2019-02-05] MEDS: INSULIN REGULAR, HUMAN 100 UNITS/1 ML SUB-Q SCH ×2 (09:13→11:30)
--- NOTE | 2019-02-05 09:47 | Discharge Summary ---
Providers - Providers Date of Admission: 01/30/19 19:19 Date of discharge: 02/05/19 Attending physician: RAH HUBER MD 01/30/19 18:57 Consult to Physician [CONS] Routine Comment: Consulting Provider: NICOLE COY Physician Instructions: Reason For Exam: H & P/ MEDICAL MANAGEMENT Primary care physician: [facility], Hospitalization Reason for admission: Threatened to kill self Condition: Stable Hospital course: The patient was provided inpatient psychiatric treatment with safe and supportive environment, group/individual therapy, psychiatric medication, medication adjustment, adverse effect monitor, medical evaluation, medical treatment, social service assessment, social support meeting, placement assessment and psycho-education. The patients mood, cognition, behavior, motivation, compliance to treatment and appreciation on family/social support are improved and stabilized. At the time of discharge, the patient had no suicidal ideas, no homicidal ideas, no aggressive thoughts, no endangering behavior and no debilitating adverse effects. The patient agreed on the jackelin atment plan, understood the risk, benefit, alternative treatment, potential consequence of no treatment, and gave informed consent. Disposition: DC-01 TO HOME OR SELFCARE Allergies/Adverse Reactions: Allergies No Known Allergies Allergy (Unverified 04/17/13 18:54) Vital Signs: Last Vital Signs Temp 97.1 F L 02/04/19 20:22 Pulse 67 02/04/19 20:22 Resp 16 02/04/19 20:22 BP 163/70 02/04/19 20:22 Pulse Ox 93 02/04/19 20:22 Last Lab: Laboratory Last Values WBC 7.2 K/mm3 (4.5-11.0) 01/31/19 18:33 RBC 4.90 M/mm3 (3.65-5.03) 01/31/19 18:33 Hgb 14.5 gm/dl (11.8-15.2) 01/31/19 18:33 Hct 44.0 % (35.5-45.6) 01/31/19 18:33 MCV 90 fl (84-94) 01/31/19 18:33 MCH 30 pg (28-32) 01/31/19 18:33 MCHC 33 % (32-34) 01/31/19 18:33 RDW 17.3 % (13.2-15.2) H 01/31/19 18:33 Plt Count 130 K/mm3 (140-440) L 01/31/19 18:33 Add Manual Diff Complete 01/31/19 18:33 Total Counted 100 01/31/19 18:33 Seg Neuts % (Manual) 60.0 % (40.0-70.0) 01/31/19 18:33 Band Neutrophils % 0 % 01/31/19 18:33 Lymphocytes % (Manual) 28.0 % (13.4-35.0) 01/31/19 18:33 Reactive Lymphs % (Man) 0 % 01/31/19 18:33 Monocytes % (Manual) 8.0 % (0.0-7.3) H 01/31/19 18:33 Eosinophils % (Manual) 2.0 % (0.0-4.3) 01/31/19 18:33 Basophils % (Manual) 2.0 % (0.0-1.8) H 01/31/19 18:33 Metamyelocytes % 0 % 01/31/19 18:33 Myelocytes % 0 % 01/31/19 18:33 Promyelocytes % 0 % 01/31/19 18:33 Blast Cells % 0 % 01/31/19 18:33 Nucleated RBC % Not Reportable 01/31/19 18:33 Seg Neutrophils # Man 4.3 K/mm3 (1.8-7.7) 01/31/19 18:33 Band Neutrophils # 0.0 K/mm3 01/31/19 18:33 Lymphocytes # (Manual) 2.0 K/mm3 (1.2-5.4) 01/31/19 18:33 Abs React Lymphs (Man) 0.0 K/mm3 01/31/19 18:33 Monocytes # (Manual) 0.6 K/mm3 (0.0-0.8) 01/31/19 18:33 Eosinophils # (Manual) 0.1 K/mm3 (0.0-0.4) 01/31/19 18:33 Basophils # (Manual) 0.1 K/mm3 (0.0-0.1) 01/31/19 18:33 Metamyelocytes # 0.0 K/mm3 01/31/19 18:33 Myelocytes # 0.0 K/mm3 01/31/19 18:33 Promyelocytes # 0.0 K/mm3 01/31/19 18:33 Blast Cells # 0.0 K/mm3 01/31/19 18:33 WBC Morphology Not Reportable 01/31/19 18:33 Hypersegmented Neuts Not Reportable 01/31/19 18:33 Hyposegmented Neuts Not Reportable 01/31/19 18:33 Hypogranular Neuts Not Reportable 01/31/19 18:33 Smudge Cells Not Reportable 01/31/19 18:33 Toxic Granulation Not Reportable 01/31/19 18:33 Toxic Vacuolation Not Reportable 01/31/19 18:33 Dohle Bodies Not Reportable 01/31/19 18:33 Pelger-Huet Anomaly Not Reportable 01/31/19 18:33 Issa Rods Not Reportable 01/31/19 18:33 Platelet Estimate Consistent w auto 01/31/19 18:33 Clumped Platelets Not Reportable 01/31/19 18:33 Plt Clumps, EDTA Not Reportable 01/31/19 18:33 Large Platelets Not Reportable 01/31/19 18:33 Giant Platelets Not Reportable 01/31/19 18:33 Platelet Satelliting Not Reportable 01/31/19 18:33 Plt Morphology Comment Not Reportable 01/31/19 18:33 RBC Morphology Not Reportable 01/31/19 18:33 Dimorphic RBCs Not Reportable 01/31/19 18:33 Polychromasia Rare 01/31/19 18:33 Hypochromasia Not Reportable 01/31/19 18:33 Poikilocytosis Not Reportable 01/31/19 18:33 Anisocytosis Not Reportable 01/31/19 18:33 Microcytosis Not Reportable 01/31/19 18:33 Macrocytosis Few 01/31/19 18:33 Spherocytes Not Reportable 01/31/19 18:33 Pappenheimer Bodies Not Reportable 01/31/19 18:33 Sickle Cells Not Reportable 01/31/19 18:33 Target Cells Not Reportable 01/31/19 18:33 Tear Drop Cells Not Reportable 01/31/19 18:33 Ovalocytes Not Reportable 01/31/19 18:33 Helmet Cells Not Reportable 01/31/19 18:33 [place] Bodies Not Reportable 01/31/19 18:33 [place] Rings Not Reportable 01/31/19 18:33 Dimple Cells Not Reportable 01/31/19 18:33 Bite Cells Not Reportable 01/31/19 18:33 Crenated Cell Not Reportable 01/31/19 18:33 Elliptocytes Not Reportable 01/31/19 18:33 Acanthocytes (Spur) Not Reportable 01/31/19 18:33 Rouleaux Not Reportable 01/31/19 18:33 Hemoglobin C Crystals Not Reportable 01/31/19 18:33 Schistocytes Not Reportable 01/31/19 18:33 Malaria parasites Not Reportable 01/31/19 18:33 Bravo Bodies Not Reportable 01/31/19 18:33 Hem Pathologist Commnt No 01/31/19 18:33 Sodium 139 mmol/L (137-145) 01/31/19 18:33 Potassium 4.2 mmol/L (3.6-5.0) 01/31/19 18:33 Chloride 101.0 mmol/L (98-107) 01/31/19 18:33 Carbon Dioxide 25 mmol/L (22-30) 01/31/19 18:33 Anion Gap 17 mmol/L 01/31/19 18:33 BUN 17 mg/dL (9-20) 01/31/19 18:33 Creatinine 1.5 mg/dL (0.8-1.5) 01/31/19 18:33 Estimated GFR 54 ml/min 01/31/19 18:33 BUN/Creatinine Ratio 11 % 01/31/19 18:33 Glucose 161 mg/dL (75-100) H 01/31/19 18:33 POC Glucose 91 (70-105) 02/05/19 07:40 Hemoglobin A1c 5.8 % (4-6) 01/31/19 07:20 Uric Acid 7.2 mg/dL (3.5-7.6) 01/31/19 18:33 Calcium 9.3 mg/dL (8.4-10.2) 01/31/19 18:33 Triglycerides 98 mg/dL (2-149) 01/31/19 07:20 Cholesterol 156 mg/dL (50-199) 01/31/19 07:20 LDL Cholesterol Direct 106 mg/dL (50-130) 01/31/19 07:20 HDL Cholesterol 47 mg/dL (40-59) 01/31/19 07:20 Cholesterol/HDL Ratio 3.31 % 01/31/19 07:20 - Discharge Diagnoses (1) Major neurocognitive disorder due to Alzheimer's disease, probable, with behavioral disturbance Status: Acute Core Measure Documentation - Palliative Care Palliative Care/ Comfort Measures: Not Applicable - Core Measures Any of the following diagnoses?: none Exam - Constitutional Vitals: Temp Pulse Resp BP Pulse Ox 97.1 F L 67 16 163/70 93 02/04/19 20:22 02/04/19 20:22 02/04/19 20:22 02/04/19 20:22 02/04/19 20:22 General appearance: Present: no acute distress, obese - EENT Eyes: Present: PERRL, EOM intact ENT: hearing intact, clear oral mucosa - Neck Neck: Present: supple, normal ROM - Respiratory Respiratory effort: normal Plan Activity: advance as tolerated Weight Bearing Status: Weight Bear as Tolerated Care Plan Goals: Maintain good and stable mental health Plan of Treatment: Take medications as prescribed Health Concerns: Diabetes, Hypertension, Obesity Assessment: Depression Follow up with: MANOLO WALDEN MD [Primary Care Provider] - 7 Days Prescriptions: Melatonin [Melatonin 5MG TAB] 5 mg PO QPM #30 tablet
[2019-02-05 09:56] VITALS: BP 158/64
[2019-02-05] MEDS: OMEGA-3 FATTY ACIDS/FISH OIL 1 GRAM CAP PO SCH (09:56)
[2019-02-05] MEDS: LISINOPRIL 20 MG TAB PO SCH (09:57)
[2019-02-05] MEDS: THIAMINE 100 MG TAB PO SCH (09:57)
[2019-02-05] MEDS: METOPROLOL TARTRATE 25 MG TAB PO SCH (09:57)
[2019-02-05] MEDS: PANTOPRAZOLE 40 MG TAB PO SCH (09:58)
[2019-02-05] MEDS: NITROFURANTOIN MONOHYD/M-CRYST 100 MG CAP PO SCH (09:58)
== END 2019-02-05 13:50 | disposition home or self-care (01) | DRG 57 ==
LOC: 3A 18:04 → UNDOADMIN 18:04 → 5A 19:19
PROVIDERS: ADMIT Psychiatry & Neurology Psychiatry; ATTEND Psychiatry & Neurology Psychiatry
DX: G30.9 Alzheimer's disease, unspecified (principal); F02.81 Dementia in other diseases classified elsewhere, unspecified severity, with behavioral disturbance; F33.9 Major depressive disorder, recurrent, unspecified; Z68.41 Body mass index [BMI] 40.0-44.9, adult; E66.9 Obesity, unspecified; E11.9 Type 2 diabetes mellitus without complications; I10 Essential (primary) hypertension; M10.9 Gout, unspecified; Z86.73 Personal history of transient ischemic attack (TIA), and cerebral infarction without residual deficits; Z85.819 Personal history of malignant neoplasm of unspecified site of lip, oral cavity, and pharynx; Z79.51 Long term (current) use of inhaled steroids
CPT/HCPCS: 36415; 71045; 80048; 80053; 80061; 80307; 80320; 81001; 82550; 82962; 83036; 83735; 84443; 84550; 85007; 85025; 85027; 85610; 87076; 87086; 87186; 93005; 93010; G0378; G0480; J1815